=== PATIENT | male | born 1960 | race Caucasian/White ===

== ENCOUNTER 2018-01-19 21:54 | Inpatient (IN) | payer BC ==
[~2018-01-19] VITALS: Ht 172.7 cm; Wt 107.5 kg
[2018-01-19 22:01] VITALS: BP_SYST 114
--- NOTE | 2018-01-19 22:16 | NUR ---
Patient to ER bed 05 to gown for evaluation. Side rails up.
--- NOTE | 2018-01-19 22:20 | NUR ---
Pt states that recently he had spinal fusion surgury. Today around 1500, Pt broke out in a cold sweat and hit a fever per pt of 103. Pt has mid and upper back pain at 10/10. Nausea with no vomitting. Pt reports serosanguneous oozing from surgical site. Will continue to monitor. AAOx4.
[2018-01-19] MEDS ORDERED: NS 1000 ML BAG IV ONE (23:00)
[2018-01-19] MEDS ORDERED: ACETAMINOPHEN 325 MG TABLET PO ONE (23:00)
--- NOTE | 2018-01-19 23:05 | NUR ---
# 18 gauge angiocath placed to R AC. Use of asceptic technique. Opsite placed over site. Blood return noted. Blood for lab drawn from site. Flushed with 10 cc of normal saline. No evidence of infiltration noted. Patient tolerated well.
[2018-01-19 23:21] LABS: BASOPHILS # (AUTO) 0.3 K/uL (0.0-0.2); BASOPHILS % (AUTO) 1.8 % (0.0-2.0); EOSINOPHILS % (AUTO) 0.1 % (0.0-4.0); HEMATOCRIT 39.6 % (36-54); HEMOGLOBIN 13.3 g/dL (14.0-18.0); LYMPHOCYTES # (AUTO) 0.8 K/uL (1.0-5.5); LYMPHOCYTES % (AUTO) 4.5 % (20.5-51.5); MEAN CORPUSCULAR HEMOGLOBIN 29 pg (27-31); MEAN CORPUSCULAR HGB CONC 34 % (32-36); MEAN CORPUSCULAR VOLUME 88 fL (79.0-98.0); MONOCYTES # (AUTO) 0.9 K/uL (0.0-1.0); MONOCYTES % (AUTO) 5.1 % (1.7-9.3); NEUTROPHILS # (AUTO) 16.1 K/uL (1.8-7.7); PLATELET COUNT (AUTO) 458 K/uL (130-430); RED BLOOD CELL COUNT(AUTO) 4.51 MIL/uL (4.2-6.2); RED CELL DISTRIBUTION WIDTH 15.3 % (9.0-15.0); WHITE BLOOD COUNT (AUTO) 18.1 K/uL (4.8-10.8)
[2018-01-19 23:27] LABS: CALCIUM 9.6 mg/dL (8.4-11.0); CREATININE 1.27 mg/dL (0.55-1.30); POTASSIUM 3.5 mmol/L (3.5-5.1)
[2018-01-19 23:30] LABS: PROTHROMBIN TIME 10.4 SECS (9.5-12.5)
[2018-01-19 23:31] LABS: ALBUMIN 3.7 g/dL (3.4-4.8); TOTAL BILIRUBIN 0.4 mg/dL (0.0-1.0)
[2018-01-19 23:39] LABS: NEUTROPHILS % (AUTO) 88.5 % (40.0-70.0)
[2018-01-20] MEDS ORDERED: DIPHENHYDRAMINE INJ 50 MG/ML VIAL IVP ONE
[2018-01-20] MEDS ORDERED: MORPHINE 4 MG/ML INJ. SYRINGE IVP ONE
[2018-01-20] MEDS ORDERED: cefTRIAXone 1 GM in D5W 50 ML IV ONE (00:30)
[2018-01-20] MEDS ORDERED: NACL 0.9% 1,000 ML IV ONE (00:30)
[2018-01-20] MEDS ORDERED: cefTRIAXone 1 GM IVPB PREMIX 50 ML IV ONE (00:37)
--- NOTE | 2018-01-20 00:39 | NUR ---
Pt taken to CT.
[2018-01-20] MEDS ORDERED: MORPHINE 2 MG/ML INJ. SYRINGE IVP PRN (00:45)
[2018-01-20] MEDS ORDERED: LORazepam 2 MG/ML VIAL IVP PRN (00:45)
[2018-01-20] MEDS ORDERED: POTASSIUM CHLORIDE 20 MEQ TAB.PRT.SR PO PRN (00:45)
[2018-01-20] MEDS ORDERED: BISACODYL 10 MG/SUPPOSITORY RC PRN (00:45)
[2018-01-20] MEDS ORDERED: SIMETHICONE 80 MG TAB.CHEW PO PRN (00:45)
[2018-01-20] MEDS ORDERED: LIP80 PO (00:59)
[2018-01-20] MEDS ORDERED: FINA5TAB3 PO (00:59)
[2018-01-20] MEDS ORDERED: ZOLP10TA2 PO (00:59)
[2018-01-20] MEDS ORDERED: GABA-531 PO (00:59)
[2018-01-20] MEDS ORDERED: MULT PO (00:59)
[2018-01-20] MEDS ORDERED: AMLO5TAB4 PO (00:59)
[2018-01-20] MEDS ORDERED: CYCL-10 PO (00:59)
[2018-01-20] MEDS ORDERED: GLU500 PO (00:59)
[2018-01-20] MEDS ORDERED: SERT50TA PO (00:59)
[2018-01-20] MEDS ORDERED: ONDA4TAB5 PO (00:59)
[2018-01-20] MEDS ORDERED: TRAM50TA92 PO (00:59)
[2018-01-20] MEDS ORDERED: HYDR-4100 PO (00:59)
--- NOTE | 2018-01-20 01:35 | NUR ---
ADMISSION NOTE Received patient from ER via gurjuan, received report from RN. Patient admitted with diagnosis of SEPSIS. Patient oriented to hospital routine, call light, toileting and safety-patient verbalized understanding.
[2018-01-20 01:44] VITALS: BP_SYST 123
[2018-01-20] MEDS ORDERED: VANCOMYCIN HCL 1,000 MG in NS 250 ML IV ONE (01:45)
--- NOTE | 2018-01-20 01:45 | NUR ---
Patient will be admitted to care of Dr. Roman. Admitted to Med Surg unit. Will go to room 117B. Belongings list completed. Summary report printed. Report will be given at bedside.
--- NOTE | 2018-01-20 02:29 | NUR ---
PAGE CALLED FOR DR. PIERRE. LEFT VOICEMAIL , DIALED [phone].
[2018-01-20 02:35] VITALS: BP_SYST 123
[2018-01-20] MEDS ORDERED: VANCOMYCIN HCL 1000 MG/VIAL IV ONE (02:57)
[2018-01-20 03:13] LABS: FREE T4 (FREE THYROXINE) 0.8 ng/dL (0.6-1.6); PHOSPHORUS 1.5 mg/dL (2.7-4.5); THYROID STIMULATING HORMONE 0.45 uIu/mL (0.34-4.82)
[2018-01-20] MEDS: NACL 0.9% 1,000 ML IV SCH ×3 (03:15→23:10)
[2018-01-20] MEDS: ACETAMINOPHEN 325 MG TABLET PO PRN ×2 (03:41→11:17)
--- NOTE | 2018-01-20 06:30 | NUR ---
pt.recieved via the er-dept.pt.admitting diagnosis sepsis.pt.presents septic protocol interventions. i have initiated the iv fluids;ns.i have initiated the administration of vancomycin;abx;lvpb.i have assessed the v/s pt.has stablized;temp;98.6,hr;76,resp;16.b/p 136/73.pt.presents wounds;incision: breach of approximated incison x3 sites;drainage manifested.emiliano moore has ordered cx of wound;i have i have apprised the pt';s [id number] diabetic hx; has ordered diet;ccho,blood glucose; ac/hs;i have assessed the blood glucose;125mg/dl. apprised of the pt's c-pap needs:dayo moore has ordered c-pap;night.er-dept has ordered ua-u/cx:i have collected the urine sample.i have demonstrated the tita telephone function.pt.understanding returned demonstration.call light/telephone w/in the pt's reach.
[2018-01-20] MEDS ORDERED: ZOLPIDEM TARTRATE 5 MG TABLET PO SCH (07:15)
--- NOTE | 2018-01-20 07:25 | NUR ---
Opening Note: Patient laying in bed resting. Patient denies pain and discomfort. Breathing is even and unlabored with no distress noted. No signs of chills of shakiness. IV patent and intact. Bed in lowest position, wheels locked, side rails x3 and call light within reach. Will continue to monitor throughout shift.
--- NOTE | 2018-01-20 07:47 | NUR ---
CONSULTATION PAGED/CALLED Reason for Consultation: [] S/P CERVICAL FUSION; SEPSIS Person Who was Notified: [] CATHLEEN Consulting Physician: [] DR LOO Rn Mobile Specialty: [] ID Ordering Physician: [] DR Queta PIERRE
[2018-01-20 08:00] VITALS: BP_SYST 134
[2018-01-20] MEDS: SERTRALINE HCL 50 MG TABLET PO SCH (08:19)
[2018-01-20] MEDS: metFORMIN HCL 500 MG TABLET PO SCH ×2 (08:19→17:45)
[2018-01-20] MEDS: CYCLOBENZAPRINE HCL 10 MG TABLET (FLEXERIL) PO SCH ×3 (08:19→20:29)
[2018-01-20] MEDS: MULTIVITAMINS TAB 1 TABLET PO SCH (08:19)
[2018-01-20] MEDS: GABAPENTIN 300 MG CAPSULE PO SCH ×3 (08:19→20:30)
[2018-01-20] MEDS: FINASTERIDE 5 MG TABLET (PROSCAR) PO SCH (08:19)
[2018-01-20] MEDS: DOCUSATE SODIUM 100 MG CAPSULE PO SCH ×2 (08:20→20:29)
[2018-01-20] MEDS: amLODIPine BESYLATE 5 MG TABLET PO SCH (08:20)
[2018-01-20 08:26] LABS: BILIRUBIN,URINE NEGATIVE (NEGATIVE); BLOOD, URINE NEGATIVE (NEGATIVE); CLARITY/URINE CLEAR (CLEAR); COLOR,URINE YELLOW (YELLOW); GLUCOSE,URINE NEGATIVE (NEGATIVE); KETONES,URINE NEGATIVE (NEGATIVE); LEUKOCYTE ESTERASE ,URINE NEGATIVE (NEGATIVE); NITRITE, URINE NEGATIVE (NEGATIVE); PROTEIN URINE NEGATIVE (NEGATIVE); UROBILINOGEN,URINE 0.2 (0.2-1.0)
[2018-01-20] MEDS ORDERED: cefTRIAXone 1 GM in D5W 50 ML IV SCH (09:00)
[2018-01-20] MEDS ORDERED: traMADol HCL HCL 50 MG TABLET (ULTRAM) PO SCH (09:00)
--- NOTE | 2018-01-20 09:15 | NUR ---
Spoke to Dr. Roman: Spoke to Dr. Roman to clarify morphine order secondary to patient allergy to codeine. Per Dr. Roman "Patient said he took morphine post surgery two weeks ago". RN to clarify with patient and call pharmacy.
--- NOTE | 2018-01-20 10:00 | NUR ---
Rounding: Patient laying in bed resting. Patient given ice pack to place on back of neck t help relieve tenderness.
[2018-01-20] MEDS: MORPHINE 4 MG/ML INJ. SYRINGE IVP PRN ×3 (11:05→20:23)
[2018-01-20 11:41] VITALS: BP_SYST 129
[2018-01-20] MEDS: VANCOMYCIN HCL 1,250 MG in NS 250 ML IV SCH ×2 (11:45→23:35)
[2018-01-20] MEDS: HYDROcodone/ACETAMIN 10-325 MG TAB PO PRN ×2 (11:50→16:50)
[2018-01-20] MEDS: ONDANSETRON HCL 4 MG/2 ML VIAL IVP PRN ×2 (11:50→16:51)
--- NOTE | 2018-01-20 12:04 | NUR ---
Rounding: Patient sitting in bed on phone. Patient denies SOB or respiratory distress. Pain medication given, will continue to monitor for pain. Patient tolerated morning meds well. IV antibiotics up and running. Patient given Tylenol for a high temp. Will continue to monitor temp. throughout shift. Will continue to monitor patient.
--- NOTE | 2018-01-20 14:12 | NUR ---
Rounding: Patient laying in bed resting. Reporting no pain. More ice packs were placed on incision site. Patient feels comfortable.
--- NOTE | 2018-01-20 15:30 | NUR ---
IV RE-INSERTION: Complaining of discomfort to IV site. Restarted on left hand. Successful after 1 attempts. Resumed current IVF of NS 0.9% and regulated @ 90 ml per hour. Will observe for any signs of infiltration.
--- NOTE | 2018-01-20 16:00 | NUR ---
Rounding: Patient sitting in chair resting. at bedside. Patient denies pain and discomfort. Breathing is even and unlabored with no distress noted. Ice packs given and placed on posterior neck. Patient has no current needs. Will continue to monitor.
[2018-01-20 17:06] VITALS: BP_SYST 119
--- NOTE | 2018-01-20 18:10 | NUR ---
Closing Note: Patient sitting in bed resting. at bedside. Patient denies pain and discomfort. Breathing is even and unlabored with no distress noted. No signs of chills or shakiness. No fever noted. IV patent and intact with ordered IV fluids running. Bed in lowest position, wheels locked, side rails x3 and call light within reach. All needs met. Will endorse plan of care to NOC, nurse.
[2018-01-20 18:43] VITALS: BP_SYST 133
--- NOTE | 2018-01-20 19:25 | NUR ---
OPENING NOTE RECEIVED PT ENDORSEMENT FROM DAY SHIFT NURSE JED. PT RESTING COMFORTABLY IN BED WITH EYES OPEN. PT IS AOX4. PRESENT AT BEDSIDE. CHEST RISE EVEN AND UNLABORED. NO SOB NOTED. NO DISTRESS NOTED. IV DRY AND INTACT. IVF INFUSING WELL. NO FURTHER NEEDS AT THIS TIME. SAFETY MEASURES IN PLACE. BED WHEELS LOCKED, BED IN LOWEST POSITION, SIDE RAILS UP X2, CALL LIGHT WITHIN REACH. PHONE WITHIN REACH, BED SIDE TABLE WITHIN REACH, BED ALARM ON. WILL CONTINUE TO MONITOR PT.
--- NOTE | 2018-01-20 20:21 | NUR ---
RN ROUNDS PT RESTING COMFORTABLY IN BED WITH EYES OPEN. AT BEDSIDE. CHEST RISE EVEN AND UNLABORED. NO SOB NOTED. NO DISTRESS NOTED. PT REPORTS PAIN, MORPHINE ADMINISTERED ORDERED. SCHEDULED MEDICATIONS ADMINISTERED. IV DRY AND INTACT. IVF INFUSING WELL. DRESSING CHANGED AND ICE PLACED TO INCISION SITE. SAFETY MEASURES IN PLACE. BED WHEELS LOCKED, BED IN LOWEST POSITION, SIDE RAILS UP X2, CALL LIGHT WITHIN REACH. PHONE WITHIN REACH, BED SIDE TABLE WITHIN REACH, BED ALARM ON. WILL CONTINUE TO MONITOR PT.
[2018-01-20] MEDS: ATORVASTATIN 20 MG TABLET PO SCH (20:29)
--- NOTE | 2018-01-20 21:53 | NUR ---
RN ROUNDS PT RESTING COMFORTABLY IN BED WITH EYES OPEN. AT BEDSIDE. CHEST RISE EVEN AND UNLABORED. NO SOB NOTED. NO DISTRESS NOTED. IV DRY AND INTACT. IVF INFUSING WELL. ACCU CHECK, BLOOD SUGAR 97. NO INSULIN COVERAGE NEEDED AT THIS TIME. ALL SCHEDULED MEDICATIONS ADMINISTERED ORDERED. SAFETY MEASURES IN PLACE. BED WHEELS LOCKED, BED IN LOWEST POSITION, SIDE RAILS UP X2, CALL LIGHT WITHIN REACH. PHONE WITHIN REACH, BED SIDE TABLE WITHIN REACH, BED ALARM ON. WILL CONTINUE TO MONITOR PT.
[2018-01-20] MEDS: ZOLPIDEM TARTRATE 5 MG TABLET PO PRN (22:00)
--- NOTE | 2018-01-20 23:00 | NUR ---
RN ROUNDS PT RESTING COMFORTABLY IN BED WITH EYES OPEN. CHEST RISE EVEN AND UNLABORED. NO SOB NOTED. NO DISTRESS NOTED. IVF INFUSING WELL. PT USING CPAP AT THIS TIME. SAFETY MEASURES IN PLACE. BED WHEELS LOCKED, BED IN LOWEST POSITION, SIDE RAILS UP X2, CALL LIGHT WITHIN REACH. PHONE WITHIN REACH, BED SIDE TABLE WITHIN REACH, BED ALARM ON. WILL CONTINUE TO MONITOR PT.
[2018-01-21 00:23] VITALS: BP_SYST 139
--- NOTE | 2018-01-21 01:39 | NUR ---
RN ROUNDS PT RESTING COMFORTABLY IN BED WITH EYES CLOSED. CHEST RISE EVEN AND UNLABORED. NO SOB NOTED. NO DISTRESS NOTED. SAFETY MEASURES IN PLACE. BED WHEELS LOCKED, BED IN LOWEST POSITION, SIDE RAILS UP X2, CALL LIGHT WITHIN REACH. PHONE WITHIN REACH, BED SIDE TABLE WITHIN REACH, BED ALARM ON. WILL CONTINUE TO MONITOR PT.
--- NOTE | 2018-01-21 03:50 | NUR ---
RN ROUNDS CHEST RISE EVEN AND UNLABORED. NO SOB NOTED. NO DISTRESS NOTED. SAFETY MEASURES IN PLACE. BED WHEELS LOCKED, BED IN LOWEST POSITION, SIDE RAILS UP X2, CALL LIGHT WITHIN REACH. PHONE WITHIN REACH, BED SIDE TABLE WITHIN REACH, BED ALARM ON. WILL CONTINUE TO MONITOR PT.
--- NOTE | 2018-01-21 05:15 | NUR ---
RN ROUNDS PT RESTING IN BED WITH EYES CLOSED. CHEST RISE EVEN AND UNLABORED. NO SOB NOTED. NO DISTRESS NOTED. NO DISCOMFORT NOTED. SAFETY MEASURES IN PLACE. BED WHEELS LOCKED, BED IN LOWEST POSITION, SIDE RAILS UP X2, CALL LIGHT WITHIN REACH. PHONE WITHIN REACH, BED SIDE TABLE WITHIN REACH, BED ALARM ON. WILL CONTINUE TO MONITOR PT.
--- NOTE | 2018-01-21 06:26 | NUR ---
CLOSING NOTE WILL ENDORSE PT PLAN OF CARE TO DAY SHIFT NURSE. PT RESTING COMFORTABLY IN BED WITH EYE CLOSED. PT IS AOX4. CHEST RISE EVEN AND UNLABORED. NO SOB NOTED. NO DISTRESS NOTED. NO DISCOMFORT NOTED AT THIS TIME. IV DRY AND INTACT. IVF INFUSING WELL. NO FURTHER NEEDS AT THIS TIME. ALL SCHEDULED MEDICATIONS ADMINISTERED ORDERED. SAFETY MEASURES IN PLACE. BED WHEELS LOCKED, BED IN LOWEST POSITION, SIDE RAILS UP X2, CALL LIGHT WITHIN REACH. PHONE WITHIN REACH, BED SIDE TABLE WITHIN REACH, BED ALARM ON. WILL CONTINUE TO MONITOR PT AND FOLLOW OF PLAN OF CARE UNTIL ENDORSEMENT.
[2018-01-21 06:47] LABS: BASOPHILS % (AUTO) 0.3 % (0.0-2.0); EOSINOPHILS # (AUTO) 0.4 K/uL (0.0-0.4); EOSINOPHILS % (AUTO) 2.4 % (0.0-4.0); HEMOGLOBIN 10.9 g/dL (14.0-18.0); LYMPHOCYTES # (AUTO) 1.7 K/uL (1.0-5.5); LYMPHOCYTES % (AUTO) 10.8 % (20.5-51.5); MEAN CORPUSCULAR HEMOGLOBIN 30 pg (27-31); MEAN CORPUSCULAR HGB CONC 33 % (32-36); MEAN CORPUSCULAR VOLUME 91 fL (79.0-98.0); MONOCYTES # (AUTO) 0.9 K/uL (0.0-1.0); NEUTROPHILS # (AUTO) 12.8 K/uL (1.8-7.7); NEUTROPHILS % (AUTO) 80.5 % (40.0-70.0); PLATELET COUNT (AUTO) 293 K/uL (130-430); RED BLOOD CELL COUNT(AUTO) 3.64 MIL/uL (4.2-6.2); RED CELL DISTRIBUTION WIDTH 15.3 % (9.0-15.0); WHITE BLOOD COUNT (AUTO) 15.8 K/uL (4.8-10.8)
[2018-01-21 06:50] LABS: CALCIUM 8.4 mg/dL (8.4-11.0); CREATININE 0.85 mg/dL (0.55-1.30); PHOSPHORUS 2.5 mg/dL (2.7-4.5); POTASSIUM 3.6 mmol/L (3.5-5.1)
--- NOTE | 2018-01-21 07:15 | NUR ---
Opening Note: Patient laying in bed resting. Patient denies pain and discomfort. Breathing is even and unlabored with no distress noted. No signs of chills of shakiness. IV patent and intact with fluids running per MD order. Bed in lowest position, wheels locked, side rails x3 and call light within reach. Will continue to monitor throughout shift.
[2018-01-21 08:00] VITALS: BP_SYST 129
--- NOTE | 2018-01-21 08:24 | NUR ---
Consult Called Called consult for Dr. Gottlieb. Dr. Bruno is covering. Spoke with MD who asked for Dr. Abel bergeron. Number was provided to the MD.
[2018-01-21] MEDS: SERTRALINE HCL 50 MG TABLET PO SCH (08:44)
[2018-01-21] MEDS: CYCLOBENZAPRINE HCL 10 MG TABLET (FLEXERIL) PO SCH ×3 (08:44→21:20)
[2018-01-21] MEDS: GABAPENTIN 300 MG CAPSULE PO SCH ×3 (08:44→21:20)
[2018-01-21] MEDS: FINASTERIDE 5 MG TABLET (PROSCAR) PO SCH (08:44)
[2018-01-21] MEDS: DOCUSATE SODIUM 100 MG CAPSULE PO SCH ×2 (08:45→21:20)
[2018-01-21] MEDS: MULTIVITAMINS TAB 1 TABLET PO SCH (08:45)
[2018-01-21] MEDS: metFORMIN HCL 500 MG TABLET PO SCH ×3 (08:45→17:15)
[2018-01-21] MEDS: amLODIPine BESYLATE 5 MG TABLET PO SCH (08:45)
[2018-01-21] MEDS: MORPHINE 4 MG/ML INJ. SYRINGE IVP PRN ×2 (08:46→15:19)
[2018-01-21] MEDS: NACL 0.9% 1,000 ML IV SCH ×2 (08:49→21:20)
[2018-01-21 10:10] LABS: T4 (THYROXINE) 6.4 ug/dL (4.5-12.0)
--- NOTE | 2018-01-21 10:15 | NUR ---
Rounding: Patient sitting in bed resting. Will continue to monitor.
[2018-01-21] MEDS: HYDROcodone/ACETAMIN 10-325 MG TAB PO PRN ×2 (11:14→17:09)
[2018-01-21] MEDS: VANCOMYCIN HCL 1,250 MG in NS 250 ML IV SCH ×2 (11:14→23:39)
[2018-01-21] MEDS: ONDANSETRON HCL 4 MG/2 ML VIAL IVP PRN ×2 (11:14→17:08)
[2018-01-21 11:38] VITALS: BP_SYST 122
--- NOTE | 2018-01-21 12:11 | NUR ---
Rounding: Patient sitting in chair eating lunch. Patient reports decreased pain level. No signs of respiratory distress. Morning medications tolerated well. Will continue to monitor.
--- NOTE | 2018-01-21 12:12 | NUR ---
Rounding: Patient sitting in bed resting. Will continue to monitor.
--- NOTE | 2018-01-21 14:10 | NUR ---
Rounding: Patient laying in bed asleep.
[2018-01-21 16:26] VITALS: BP_SYST 129
--- NOTE | 2018-01-21 16:30 | NUR ---
Rounding: Patient sitting in chair reading a newspaper. at bedside. Patient denies SOB or respiratory distress. Patient complain fo moderate pain. Pain medication to be given. Meds tolerated well. Will continue to monitor.
--- NOTE | 2018-01-21 17:21 | NUR ---
Blood Sugar: Blood sugar 62. Held metformin. Patient shows no signs of hypoglycemia. Alert, awake and oriented. Gave patient orange juice, pudding and a sandwich. Will reassess in 30 minutes.
--- NOTE | 2018-01-21 17:51 | NUR ---
Blood Sugar reassessment: Blood sugar is 92. Patient denies any lightheadedness, dizziness or shakiness. No signs of hypoglycemia.
[2018-01-21] MEDS ORDERED: fentaNYL CITRATE/PF 100 MCG/2 ML AMP IVP PRN (19:00)
[2018-01-21 19:45] VITALS: BP_SYST 135
--- NOTE | 2018-01-21 19:45 | NUR ---
INITIAL NOTE PATIENT IS RESTING UPRIGHT IN A CHAIR BY BEDSIDE TABLE WITH AT BEDSIDE. PATIENT IS STABLE, NO SIGNS OF RESPIRATORY DISTRESS. PLAN OF CARE FOR THE EVENING IS COMMUNICATED WITH PATIENT AND FAMILY. IVS ARE SECURE, IVF RUNNING PER MD ORDERS. CALL LIGHT- TEACH BACK IS SUCCESSFUL. BED IS LOCKED, ALARMED, AND AT THE LOWEST LEVEL.
--- NOTE | 2018-01-21 20:50 | NUR ---
MD COMMUNICATION DR. PIERRE PAGED AT THIS TIME SINCE PATIENT'S PAIN MEDICATION WAS INEFFECTIVE FOR PATIENT, EVIDENCE BY PATIENT VERBALIZING PAIN OF 05/04. ORDERED FENTANYL 50 MCG IVP Q6 PRN FOR SEVERE PAIN, AND ONE DOSE TO BE GIVEN NOW. PATIENT ALSO REQUESTED FOR AMBIEN 10 MG INSTEAD OF 5 MG DOSE HE HAS ORDERED. DR PIERRE HAS APPROVED FOR AMBIEN 10 MG AT NIGHT PRN FOR INSOMNIA. ORDERS WERE READ BACK, VERIFIED, AND ENTERED. Addendum: 01/21/18 at 2311 by Sheldon Silveira RN NOTE INTENDED FOR 2149
[2018-01-21] MEDS ORDERED: cefTRIAXone 1 GM in D5W 50 ML IV SCH (21:00)
[2018-01-21] MEDS: ATORVASTATIN 20 MG TABLET PO SCH (21:27)
--- NOTE | 2018-01-21 21:47 | NUR ---
WOUND CARE AND D/C IV PATIENT IS RESTING UPRIGHT IN A CHAIR AT BEDSIDE, STABLE, NO SIGNS OF RESPIRATORY DISTRESS. PATIENT COMPLAINS OF 9/10 PAIN, HE IS GIVEN FLEXERIL PER PRN ORDERS FOR PAIN. WOUND CARE FOR POSTERIOR NECK WOUND IS PERFORMED AT THIS TIME. OLD 4/4 GAUZE WAS REMOVED WITH YELLOW DRAINAGE NOTED ON GAUZE, PERIWOUND IS DARK PINK, NEW 4/4 GUAZE IS PLACED ON WOUND AND SECURED WITH PAPER TAPE. PATIENT TOLERATED WELL. IV ON RIGHT AC IS D/C AT THIS TIME SINCE IV IS NOT PATENT. IV TIP INTACT, PATIENT TOLERATED WELL. PATIENT IS REQUESTING FOR AMBIEN TO BE GIVEN AT NIGHT AROUND 2200. REQUEST WILL BE GRANTED.
--- NOTE | 2018-01-21 21:50 | NUR ---
MD COMMUNICATION DR. PIERRE PAGED AT THIS TIME SINCE PATIENT'S PAIN MEDICATION WAS INEFFECTIVE FOR PATIENT, EVIDENCE BY PATIENT VERBALIZING PAIN OF 05/04. MD ORDERED FENTANYL 50 MCG IVP Q6 PRN FOR SEVERE PAIN, AND ONE DOSE TO BE GIVEN NOW. PATIENT ALSO REQUESTED FOR AMBIEN 10 MG INSTEAD OF 5 MG DOSE HE HAS ORDERED. DR PIERRE HAS APPROVED FOR AMBIEN 10 MG AT NIGHT PRN FOR INSOMNIA. ORDERS WERE READ BACK, VERIFIED, AND ENTERED.
[2018-01-21] MEDS: ZOLPIDEM TARTRATE 5 MG TABLET PO PRN (22:24)
[2018-01-21] MEDS ORDERED: ZOLPIDEM TARTRATE 5 MG TABLET PO ONE (23:30)
[2018-01-21] MEDS: fentaNYL CITRATE/PF 100 MCG/2 ML AMP IVP PRN (23:42)
--- NOTE | 2018-01-21 23:45 | NUR ---
NOTE PATIENT IS SLEEPING IN BED, STABLE, NO SIGNS OF RESPIRATORY DISTRESS. PATIENT IS WEARING A CPAP FROM [facility], CPAP IS SECURE AND WORKING PROPERLY. PATIENT IS GIVEN 50 MCG FENTANYL AND 5 ADDITIONAL MG OF AMBIEN ORDERED BY MD. PATIENT TOLERATED WELL. CALL LIGHT WITHIN REACH. BED IS LOCKED, ALARMED, AND AT THE LOWEST LEVEL.
[2018-01-21 23:57] VITALS: BP_SYST 146
--- NOTE | 2018-01-22 00:12 | NUR ---
NOTE PATIENT IS SLEEPING, STABLE, NO SIGNS OF RESPIRATORY DISTRESS. PAIN MEDICATION AND SLEEPING MEDICATION EFFECTIVE EVIDENCE BY PATIENT BEING ABLE TO SLEEP. CALL LIGHT WITHIN REACH. BED IS LOCKED, ALARMED, AND AT THE LOWEST LEVEL.
--- NOTE | 2018-01-22 01:50 | NUR ---
NOTE PATIENT IS SLEEPING, STABLE, NO SIGNS OF RESPIRATORY DISTRESS. CALL LIGHT WITHIN REACH. BED IS LOCKED, ALARMED, AND AT THE LOWEST LEVEL.
--- NOTE | 2018-01-22 05:10 | NUR ---
NOTE PATIENT IS SLEEPING, STABLE, NO SIGNS OF RESPIRATORY DISTRESS. CALL LIGHT WITHIN REACH. BED IS LOCKED, ALARMED, AND AT THE LOWEST LEVEL.
[2018-01-22] MEDS: fentaNYL CITRATE/PF 100 MCG/2 ML AMP IVP PRN ×4 (06:16→22:01)
--- NOTE | 2018-01-22 06:45 | NUR ---
CLOSING NOTE PATIENT IS RESTING IN BED AT THIS TIME, STABLE, NO SIGNS OF RESPIRATORY DISTRESS. PATIENT VERBALIZES PAIN OF 7/10, PRN PAIN MEDICATION IS GIVEN AT THIS TIME PER MD ORDERS. BLOOD SUGAR CHECK AT THIS TIME IS 90, NO INSULIN COVERAGE IS NECESSARY AT THIS TIME. IV IS SECURE, INTACT, AND RUNNING IVF ORDERED. CALL LIGHT WITHIN REACH. BED IS LOCKED, ALARMED, AND AT THE LOWEST LEVEL. WILL CONTINUE TO MONITOR UNTIL SHIFT REPORT IS GIVEN TO AM NURSE AT BEDSIDE.
[2018-01-22 06:51] LABS: BASOPHILS # (AUTO) 0.1 K/uL (0.0-0.2); BASOPHILS % (AUTO) 0.6 % (0.0-2.0); EOSINOPHILS # (AUTO) 0.5 K/uL (0.0-0.4); EOSINOPHILS % (AUTO) 5.1 % (0.0-4.0); HEMATOCRIT 31.6 % (36-54); HEMOGLOBIN 10.1 g/dL (14.0-18.0); LYMPHOCYTES # (AUTO) 1.7 K/uL (1.0-5.5); LYMPHOCYTES % (AUTO) 16.1 % (20.5-51.5); MEAN CORPUSCULAR HEMOGLOBIN 29 pg (27-31); MEAN CORPUSCULAR HGB CONC 32 % (32-36); MEAN CORPUSCULAR VOLUME 90 fL (79.0-98.0); MONOCYTES # (AUTO) 0.6 K/uL (0.0-1.0); MONOCYTES % (AUTO) 5.5 % (1.7-9.3); NEUTROPHILS # (AUTO) 7.7 K/uL (1.8-7.7); NEUTROPHILS % (AUTO) 72.7 % (40.0-70.0); PLATELET COUNT (AUTO) 308 K/uL (130-430); RED BLOOD CELL COUNT(AUTO) 3.52 MIL/uL (4.2-6.2); RED CELL DISTRIBUTION WIDTH 15.1 % (9.0-15.0); WHITE BLOOD COUNT (AUTO) 10.6 K/uL (4.8-10.8)
[2018-01-22 07:00] LABS: CALCIUM 8.3 mg/dL (8.4-11.0); CREATININE 0.67 mg/dL (0.55-1.30); PHOSPHORUS 3.1 mg/dL (2.7-4.5); POTASSIUM 3.6 mmol/L (3.5-5.1)
[2018-01-22] MEDS: NACL 0.9% 1,000 ML IV SCH ×2 (08:06→15:55)
[2018-01-22 08:30] VITALS: BP_SYST 131
--- NOTE | 2018-01-22 08:30 | NUR ---
OPENING NOTE LATE ENTRY DUE TO PT CARE: REPORT IS RECEIVED FROM NUTRITION COUNSELOR NURSE AND CARE IS ENDORSED OVER TO MYSELF. PT IS RECEIVED AWAKE, ALERT, AND ORIENTED X4. MORNING VS ARE STABLE. PT COMPLAINED OF PAIN IN NECK AREA OF 8 OUT OF 10. GAVE PRN MORPHINE AND MORNING MEDICATIONS. PT ADVISED OF INCREASED RISK FOR FALLS AND THE NEED TO USE CALL LIGHT SHOULD HE WANT TO GET OUT OF BED SINCE PT REFUSED BED ALARM. PT VERBALIZED UNDERSTANDING. PT HAS IV ACCESS TO LEFT HAND 20G WITH NS INFUSING AT 90ML/HR. IV IS PATENT, FREE OF ERYTHEMA OR INFLAMMATION. WHITE BOARD IS UPDATED WITH CURRENT INFORMATION, CURRENT NEEDS ARE MET. BED IS AT LOWEST POSITION, CALL LIGHT WITHIN REACH, THREE SIDE RAILS UP, BED ALARM IS ON. WILL CONTINUE TO MONITOR.
[2018-01-22] MEDS: metFORMIN HCL 500 MG TABLET PO SCH ×2 (08:32→17:46)
[2018-01-22] MEDS: GABAPENTIN 300 MG CAPSULE PO SCH ×3 (09:28→21:00)
[2018-01-22] MEDS: CYCLOBENZAPRINE HCL 10 MG TABLET (FLEXERIL) PO SCH ×3 (09:28→21:00)
[2018-01-22] MEDS: DOCUSATE SODIUM 100 MG CAPSULE PO SCH ×2 (09:28→21:00)
[2018-01-22] MEDS: amLODIPine BESYLATE 5 MG TABLET PO SCH (09:28)
[2018-01-22] MEDS: MULTIVITAMINS TAB 1 TABLET PO SCH (09:28)
[2018-01-22] MEDS: FINASTERIDE 5 MG TABLET (PROSCAR) PO SCH (09:29)
[2018-01-22] MEDS: SERTRALINE HCL 50 MG TABLET PO SCH (09:29)
[2018-01-22] MEDS: MORPHINE 4 MG/ML INJ. SYRINGE IVP PRN ×2 (09:30→15:55)
--- NOTE | 2018-01-22 09:45 | NUR ---
DR. IGNACIO MCMANUS
--- NOTE | 2018-01-22 10:11 | NUR ---
ROUNDS PT IS SITTING ALONG BEDSIDE. NO SIGNS OR SYMPTOMS OF DISTRESS OR SOB NOTED. PT STATES CURRENT PAIN LEVEL IS AT A 5 WHICH IS TOLERABLE PER PT. CURRENT NEEDS ARE MET.BED IS AT LOWEST POSITION,CALL LIGHT WITHIN REACH, TWO SIDE RAILS UP. WILL CONTINUE TO MONITOR.
[2018-01-22] MEDS ORDERED: VANCOMYCIN HCL 1,500 MG in NS 250 ML IV SCH (11:00)
[2018-01-22 12:22] VITALS: BP_SYST 134
--- NOTE | 2018-01-22 12:45 | NUR ---
ROUNDS LATE ENTRY DUE TO PT CARE: PT IS EATING LUNCH AT BEDSIDE. NO SIGNS OR SYMPTOMS OF DISTRESS OR SOB NOTED. FINGERSTICK BLOOD SUGAR WAS LOW (61) AND PT WAS GIVEN TWO APPLE JUICES. BLOOD SUGAR WAS REASSESSED 30 MINUTES LATER AND IT WAS 81. CURRENT NEEDS ARE MET.BED IS AT LOWEST POSITION, CALL LIGHT WITHIN REACH, TWO SIDE RAILS UP. WILL CONTINUE TO MONITOR.
[2018-01-22] MEDS: ceFAZolin SODIUM 1 GM in D5W 50 ML IV SCH ×2 (14:21→21:00)
[2018-01-22] MEDS: ONDANSETRON HCL 4 MG/2 ML VIAL IVP PRN ×2 (14:22→22:39)
[2018-01-22] MEDS: HYDROcodone/ACETAMIN 10-325 MG TAB PO PRN ×2 (14:22→22:39)
--- NOTE | 2018-01-22 14:31 | NUR ---
Dietitian Recommendations *Recommend CCHO 2gm Na diet w/ Boost Plus BID for 5 days or until PO intake improves. Oral supplement will provide additional 500 kcal and 28 gm protein daily. Please see Nutritional Assessment for details. MICHAEL BOSTON
--- NOTE | 2018-01-22 14:40 | NUR ---
ROUNDS LATE ENTRY DUE TO PT CARE: PT IS SLEEPING BUT IS EASILY AWAKEN. NO SIGNS OR SYMPTOMS OF DISTRESS OR SOB NOTED. CURRENT NEEDS ARE MET. BED IS AT LOWEST POSITION, CALL LIGHT WITHIN REACH, TWO SIDE RAILS UP. WILL CONTINUE TO MONITOR.
--- NOTE | 2018-01-22 15:30 | NUR ---
PT TAKEN TO CT
[2018-01-22 16:00] VITALS: BP_SYST 135
--- NOTE | 2018-01-22 16:43 | NUR ---
ROUNDS PT WAS BROUGHT BACK FROM CT. NO SIGNS OR SYMPTOMS OF DISTRESS OR SOB NOTED. PT COMPLAINED OF PAIN OF 8 OUT OF 10 IN NECK AREA AND WAS GIVEN PRN MORPHINE IVP. PT ADVISED OF INCREASED RISK FOR FALLS AND THE NEED TO USE CALL LIGHT SHOULD HE WANT TO GET OUT OF BED SINCE HE DOESN'T WANT BED ALARM ON. PT VERBALIZED UNDERSTANDING. DRESSING TO BACK OF NECK WAS CHANGED AND TOLERATED WELL. CURRENT NEEDS ARE MET. BED IS AT LOWEST POSITION, CALL LIGHT WITHIN REACH, TWO SIDE RAILS UP. WILL CONTINUE TO MONITOR.
[2018-01-22] MEDS: ACETAMINOPHEN 325 MG TABLET PO PRN (17:47)
--- NOTE | 2018-01-22 18:55 | NUR ---
CLOSING NOTE PT IS SITTING ALONG BEDSIDE. NO SIGNS OR SYMPTOMS OF DISTRESS OR SOB NOTED. DAUGHTER IS AT BEDSIDE. CURRENT NEEDS ARE MET. BED IS AT LOWEST POSITION, CALL LIGHT WITHIN REACH, TWO SIDE RAILS UP. WILL CONTINUE TO MONITOR UNTIL CARE AND REPORT IS GIVEN TO BEHAVIORAL SCIENTIST NURSE.
--- NOTE | 2018-01-22 19:02 | NUR ---
DR. SHENG MCMANUS
--- NOTE | 2018-01-22 19:36 | NUR ---
INITIAL NOTES RECEIVED HANDOFF REPORT FROM OFFGOING NURSE AT THE BEDSIDE. PATIENT IS AWAKE AND ALERT, SITTING UP IN BEDSIDE CHAIR WITH TABLE INFRONT OF HIM EATING. FAMILY AT THE BEDSIDE. DR PATRICIO AT THE BEDSIDE DISCUSSING PLAN OF CARE, AND STATED THAT SHE WILL KEEP THE PATIENT NPO AFTER MIDNIGHT. NO SOB, NO ACUTE DISTRESS, NO COMPLAINTS OF PAIN AT THIS TIME. CALL LIGHT WITHIN REACH. WILL CONTINUE WITH PLAN OF CARE.
[2018-01-22 20:45] VITALS: BP_SYST 124
[2018-01-22] MEDS: ATORVASTATIN 20 MG TABLET PO SCH (21:00)
[2018-01-22] MEDS: ZOLPIDEM TARTRATE 5 MG TABLET PO PRN (22:01)
--- NOTE | 2018-01-22 22:08 | NUR ---
PATIENT REQUESTED FOR FENTANYL AND AMBIEN. PATIENT WANTS AMBIEN WITH FENTANYL SO THAT HE CAN GET SOME REST FOR TONIGHT. ALSO STATED HE HAS SHARP PAIN IN BETWEEN HIS SHOULDER BLADES AND ON THE BACK OF HIS NECK 04/03. FENTANYL PROVIDED PER MD ORDER, SEE EMAR FOR DETAILS. ALSO PROVIDED AMBIEN PER MD ORDER. Addendum: 01/22/18 at 2210 by Melissa Urbina RN CONTINUATION OF NOTES PATIENT IS AWAKE AND ALERT, RESTING COMFORTABLY IN BED. NO SOB, NO ACUTE DISTRESS. BED IS LOCKED, IN THE LOWEST POSITION, 2X SIDERAILS UP. PATIENT REFUSES BED ALARM. STATED THAT HE HAD JUST WALKED BACK TO BED, BUT HE WOULD LIKE TO BE ABLE TO GET UP WHENEVER HE CAN. CALL LIGHT IS WITHIN REACH, ENCOURAGED PATIENT TO CALL.
--- NOTE | 2018-01-22 22:43 | NUR ---
PATIENT REQUESTED FOR NORCO FOR 6/10 PAIN THAT IS SHARP IN BETWEEN HIS SHOULDER BLADES AND THE BACK OF THE NECK. PATIENT STATED HE WANTS HIS PAIN TO BE AT A CONTROLLABLE LEVEL. ALSO, THE PATIENT REQUESTED FOR ZOFRAN, STATING THAT THE NORCO MAKES HIM NAUSEOUS. NORCO AND ZOFRAN PROVIDED PRN PER MD ORDER, SEE EMAR FOR DETAILS.
[2018-01-22 23:00] VITALS: BP_SYST 123
[2018-01-23] VITALS (7 sets, daily range): BP systolic 120–155
--- NOTE | 2018-01-23 00:28 | NUR ---
ENDORSEMENT OF CARE GIVEN TO CHAU-RN AT THE BEDSIDE. PATIENT IS SLEEPING, RESTING COMFORTABLY IN BED. NO SOB, NO ACUTE DISTRESS, NO SIGNS OF PAIN OR FACIAL GRIMACING. BREATHING EVEN AND UNLABORED WITH VISIBLE CHEST RISE. IV SITE INTACT, CURRENTLY INFUSING FLUIDS AT THE ORDERED RATE, SEE EMAR. BED IS LOCKED, IN THE LOWEST POSITION, 2X SIDE RAILS UP. CALL LIGHT WITHIN REACH. ALL NEEDS HAVE BEEN MET DURING MY CARE.
--- NOTE | 2018-01-23 00:29 | NUR ---
RESUME THE CARE Received the reported from NGOC Torres at bedside. Patient resting on the bed with eyes closed. No acute distress. Respiration even and unlabored. On CPAP at this time. Skin warm and dry to touch. IV intact to left hand, no redness, no swelling, no drainage. On NS at 90ml/hr, infusing well. Safety measure maintained. Bed locked in low position, side rails up. Call light within reached. Will continue to monitor.
[2018-01-23] MEDS: MORPHINE 4 MG/ML INJ. SYRINGE IVP PRN ×4 (00:51→23:47)
--- NOTE | 2018-01-23 00:52 | NUR ---
MORPHINE GIVEN Patient c/o neck pain 04/03 after ambulated to bathroom. Morphine 4mg IVP given as ordered. No acute distress. Safety measure maintained. Call light within reached. Bed locked in low position, side rails up. Continue to monitor.
--- NOTE | 2018-01-23 01:53 | NUR ---
ROUND Patient resting on the bed with eyes closed. No acute distress. Respiration even and unlabored. Continue on CPAP. IV intact, IVF infusing well. Safety measure maintained. Call light within reached. Bed locked in low position, side rails up. Continue to monitor.
[2018-01-23] MEDS: fentaNYL CITRATE/PF 100 MCG/2 ML AMP IVP PRN ×4 (03:11→21:14)
--- NOTE | 2018-01-23 03:12 | NUR ---
FENTANYL GIVEN Patient c/o neck pain 05/04, Fentanyl 75mcg IVP given as ordered. No acute distress. Continue on CPAP. Safety measure maintained. Bed locked in low position, side rails up. Call light within reached. Continue to monitor.
[2018-01-23] MEDS: NACL 0.9% 1,000 ML IV SCH ×3 (03:20→23:48)
[2018-01-23] MEDS: ceFAZolin SODIUM 1 GM in D5W 50 ML IV SCH ×3 (05:15→21:15)
--- NOTE | 2018-01-23 05:20 | NUR ---
MORPHINE GIVEN Patient c/o neck pain 04/03. Morphine 4mg IVP given as ordered. No acute distress. Off CPAP at this time. Safety measure maintained. Call light within reached. Bed locked in low position, side rails up. Continue to monitor.
--- NOTE | 2018-01-23 06:23 | NUR ---
CLOSING NOTE Patient resting on the bed. No acute distress. Respiration even and unlabored. Stated that still has pain. Pain med given around clock during shift. IV intact, IVF infusing well. All needs met. Hourly rounding during shift. Safety measure maintained. Bed locked in low position, side rails up. Call light within reached. Will endorse to morning shift.
[2018-01-23 06:38] LABS: BASOPHILS # (AUTO) 0.1 K/uL (0.0-0.2); BASOPHILS % (AUTO) 0.6 % (0.0-2.0); EOSINOPHILS # (AUTO) 0.6 K/uL (0.0-0.4); EOSINOPHILS % (AUTO) 6.2 % (0.0-4.0); HEMATOCRIT 29.7 % (36-54); HEMOGLOBIN 9.7 g/dL (14.0-18.0); LYMPHOCYTES # (AUTO) 1.8 K/uL (1.0-5.5); MEAN CORPUSCULAR HEMOGLOBIN 29 pg (27-31); MEAN CORPUSCULAR HGB CONC 33 % (32-36); MEAN CORPUSCULAR VOLUME 90 fL (79.0-98.0); MONOCYTES # (AUTO) 0.6 K/uL (0.0-1.0); MONOCYTES % (AUTO) 5.9 % (1.7-9.3); NEUTROPHILS # (AUTO) 6.3 K/uL (1.8-7.7); NEUTROPHILS % (AUTO) 68.3 % (40.0-70.0); PLATELET COUNT (AUTO) 288 K/uL (130-430); RED BLOOD CELL COUNT(AUTO) 3.32 MIL/uL (4.2-6.2); RED CELL DISTRIBUTION WIDTH 15.1 % (9.0-15.0); WHITE BLOOD COUNT (AUTO) 9.4 K/uL (4.8-10.8)
[2018-01-23 06:50] LABS: CALCIUM 8.6 mg/dL (8.4-11.0); CREATININE 0.75 mg/dL (0.55-1.30); PHOSPHORUS 4.1 mg/dL (2.7-4.5); POTASSIUM 3.6 mmol/L (3.5-5.1)
--- NOTE | 2018-01-23 07:20 | NUR ---
FENTANYL GIVEN Patient c/o neck pain 04/03, Fentanyl 75mcg IVP given as ordered. No acute distress. Continue on CPAP. Safety measure maintained. Bed locked in low position, side rails up. Call light within reached. Will endorse to morning shift nurse.
--- NOTE | 2018-01-23 07:52 | NUR ---
Nutrition Update Alen Scale 18 noted. Pt admitted for sepsis Diet: NPO BMI: 36 kg/m2 RD to follow per nutrition care standards.
[2018-01-23] MEDS: metFORMIN HCL 500 MG TABLET PO SCH ×2 (08:00→17:55)
--- NOTE | 2018-01-23 08:00 | NUR ---
Note Pt sitting up in bed and dressing on cervical spine was changed and cleaned at 0715am. No SOB/resp distress or pain/discomfort noted at this time. IVF's infusing well through left hand IV site. Pt is kept NPO for possible surgery. No needs noted. Call light wihtin reach.
[2018-01-23] MEDS: MULTIVITAMINS TAB 1 TABLET PO SCH (08:52)
[2018-01-23] MEDS: DOCUSATE SODIUM 100 MG CAPSULE PO SCH ×2 (08:52→21:15)
[2018-01-23] MEDS: amLODIPine BESYLATE 5 MG TABLET PO SCH (08:52)
[2018-01-23] MEDS: CYCLOBENZAPRINE HCL 10 MG TABLET (FLEXERIL) PO SCH ×3 (08:52→21:15)
[2018-01-23] MEDS: GABAPENTIN 300 MG CAPSULE PO SCH ×3 (08:52→21:15)
[2018-01-23] MEDS: FINASTERIDE 5 MG TABLET (PROSCAR) PO SCH (08:53)
[2018-01-23] MEDS: SERTRALINE HCL 50 MG TABLET PO SCH (08:53)
--- NOTE | 2018-01-23 10:52 | NUR ---
PAGED DR PATRICIO S/W FARIDA
--- NOTE | 2018-01-23 11:30 | NUR ---
Note Dr Bruno was called at 1045am per pt's request to see when Dr Bruno was coming in to see pt and if surgery was going to be done today. Dr Bruno called back at 1100am and said she will probably come to see pt later this afternoon, also she would like to speak to Dr Lincoln. Dr Lincoln was called and Dr Bruno's cell phone and office number given for Dr Lincoln to call. 1105am - Dr Bruno called back and stated that OR only has an opening tomorrow at 2pm. Pt may have his [facility] diet today and MD will came see pt this afternoon. Pt was informed and questions/concerns were answered at this time. Pt sitting in BS chair and working on his laptop. No needs noted. Call light within reach.
--- NOTE | 2018-01-23 12:30 | NUR ---
Note Pt's blood sugar was 60, pt was given 2 cups of apple juice at this time. Lunch tray also at bedside at this time.
--- NOTE | 2018-01-23 13:45 | NUR ---
Note Pt having Ultrasound Venous Doppler study of lower extremities at bedside at this time.
--- NOTE | 2018-01-23 16:00 | NUR ---
Note Pt has been ambulating in room to the restroom with IV pole with steady gait. Cervical dressing CDI - was changed around 1415. Previous dressing was saturated (changed at start of shift by NOC RN). Pt denies any needs at this time. Call light within reach.
--- NOTE | 2018-01-23 17:45 | NUR ---
Note Dr Bruno at bedside explaining surgery and questions/concerns were answered at this time. Pt sitting on side of bed eating his dinner. Pt's in bedside chair visiting at this time. No needs noted. Call light within reach.
[2018-01-23 17:48] LABS: PROTHROMBIN TIME 9.8 SECS (9.5-12.5)
--- NOTE | 2018-01-23 19:00 | NUR ---
Note Pt resting in bed and in BSC. No needs noted. No SOB/resp distress or pain/discomfort noted. Cervical dressing CDI at this time. IV in left hand and right forearm intact and patent at this time. Call light within reach.
--- NOTE | 2018-01-23 20:20 | NUR ---
OPENING SHIFT NOTE patient alert oriented x4. patient has new PICC placed on left upper arm, infusing NS at 90ml/hr. patient has incision on neck, covered with abdominal pad. dressing clean, dry and intact. plan of care discussed and advised patient to call PRN. patient verbalized understanding. will continue to monitor.
[2018-01-23] MEDS: ATORVASTATIN 20 MG TABLET PO SCH (21:15)
--- NOTE | 2018-01-23 21:45 | NUR ---
DRESSING CHANGE cleansed wound with ns, pad dry with sterile gauze, covered with sterile gauze and abdominal pad. secured with paper tape. will continue to monitor.
[2018-01-23] MEDS: ZOLPIDEM TARTRATE 5 MG TABLET PO PRN (22:31)
--- NOTE | 2018-01-23 23:50 | NUR ---
PAIN MEDICATION patient requesting pain medication. administered morphine per order. advised patient to call when ambulating due to increased risk for fall patient verbalized understanding. will continue to monitor.
[2018-01-24 00:13] VITALS: BP_SYST 147
[2018-01-24] MEDS: fentaNYL CITRATE/PF 100 MCG/2 ML AMP IVP PRN ×5 (02:12→16:05)
--- NOTE | 2018-01-24 02:30 | NUR ---
SCD REFUSAL patient refusing scd to be applied. educated patient on indication for scd. patient states that he does not think that he is at risk for clots for now, but he will have them on after surgery. will continue to monitor.
--- NOTE | 2018-01-24 04:43 | NUR ---
ROUNDS patient sleeping comfortably, no distress noted. will continue to monitor. bed in lowest position, call light within reach.
[2018-01-24] MEDS: ceFAZolin SODIUM 1 GM in D5W 50 ML IV SCH ×3 (05:09→21:25)
[2018-01-24] MEDS: MORPHINE 4 MG/ML INJ. SYRINGE IVP PRN ×4 (05:09→21:22)
--- NOTE | 2018-01-24 06:32 | NUR ---
CONSENT consent obtained for surgery. asked patient if he has any concern or questions. patient denies. advised patient to ask questions if he has one later. patient verbalized understanding. will continue to monitor.
[2018-01-24] MEDS: INSULIN REGULAR, HUMAN 100 UNITS/ML, 10 ML VIAL (novoLIN R) SUBCUT PRN (06:33)
--- NOTE | 2018-01-24 07:30 | NUR ---
END OF SHIFT care endorsed to Shannan GROSSMAN. patient sitting on chair, next to bed, no distress noted.
--- NOTE | 2018-01-24 07:55 | NUR ---
INITIAL NOTES RECEIVED PATIENT FROM BOARD CERTIFIED FAMILY PHYSICIAN. PATIENT AWAKE. A/Ox4. VERBALLY RESPONSIVE. ROOM AIR. NO ACUTE DISTRESS. NO SOB. RESPIRATION EVEN AND UNLABORED. SKIN WARM AND DRY TO TOUCH. PICC LINE TO LEFT UPPER ARM INTACT AND PATENT. INCISION NOTED TO POSTERIOR NECK; COVERED WITH ABDOMINAL PAD AND SECURED. ORIENTED PATIENT TO CALL LIGHT AND TO USE FOR ASSIST, PT VERBALIZED UNDERSTANDING. DISCUSSED PLAN OF CARE WITH PATIENT, PT VERBALIZED UNDERSTANDING. PT REFUSED BED ALARM AND BILAT SCDs. ALL NEEDS MET. CONT TO MONITOR. CALL LIGHT IN REACH.
[2018-01-24 08:00] VITALS: BP_SYST 132
[2018-01-24] MEDS: GABAPENTIN 300 MG CAPSULE PO SCH ×3 (09:17→21:29)
[2018-01-24] MEDS: metFORMIN HCL 500 MG TABLET PO SCH ×2 (09:17→17:10)
[2018-01-24] MEDS: FINASTERIDE 5 MG TABLET (PROSCAR) PO SCH (09:17)
[2018-01-24] MEDS: MULTIVITAMINS TAB 1 TABLET PO SCH (09:17)
[2018-01-24] MEDS: DOCUSATE SODIUM 100 MG CAPSULE PO SCH ×2 (09:17→21:27)
[2018-01-24] MEDS: CYCLOBENZAPRINE HCL 10 MG TABLET (FLEXERIL) PO SCH ×3 (09:18→21:28)
[2018-01-24] MEDS: SERTRALINE HCL 50 MG TABLET PO SCH (09:18)
[2018-01-24] MEDS: amLODIPine BESYLATE 5 MG TABLET PO SCH (09:18)
--- NOTE | 2018-01-24 09:20 | NUR ---
NOTES PATIENT STABLE. AMBULATED TO BATHROOM WITH STEADY GAIT. NO ACUTE DISTRESS. NO SOB. RESP EVEN AND UNLABORED. CONTINUE TO MONITOR. CALL LIGHT IN REACH.
--- NOTE | 2018-01-24 11:15 | NUR ---
PAGED FOR LOW BLOOD SUGAR AT 58. PATIENT STABLE. NO S/SX HYPOGLYCEMIA NOTED. AWAITING FOR CALL BACK.
--- NOTE | 2018-01-24 11:55 | NUR ---
PAGED x2 FOR PATIENTS BLOOD SUGAR OF 58. PATIENT STABLE. NO S/SX HYPOGLYCEMIA NOTED. CONT TO MONITOR.
--- NOTE | 2018-01-24 12:20 | NUR ---
SPOKE TO DR. HARO AND INFORMED HIM PATIENT BLOOD SUGAR IS AT 58. RECEIVED ORDER FOR DEXTROSE ORDERED.
[2018-01-24] MEDS ORDERED: DEXTROSE 50% JECT 50 ML DISP.SYRIN IVP PRN (12:30)
[2018-01-24 12:46] VITALS: BP_SYST 146
--- NOTE | 2018-01-24 13:40 | NUR ---
BLOOD SUGAR PATIENT STABLE. NO S/SX HYPOGLYCEMIA NOTED. LAST BLOOD SUGAR AT 138. MADE OR AWARE.
--- NOTE | 2018-01-24 13:55 | NUR ---
off unit PATIENT TAKEN OFF UNIT VIA BED TO OR FOR PROCEDURE. PATIENT A/Ox4. STABLE. NO ACUTE DISTRESS. NO SOB NOTED. SKIN WARM AND DRY TO TOUCH.
[2018-01-24] MEDS ORDERED: POLYMYXIN 500,000/BACIT.10,000 UNITS in NS IRR 1 L IR ONE (14:20)
[2018-01-24] MEDS ORDERED: ONDANSETRON HCL 4 MG/2 ML VIAL IVP PRN (15:00)
[2018-01-24] MEDS ORDERED: fentaNYL CITRATE/PF 100 MCG/2 ML AMP IVP PRN (15:00)
[2018-01-24] MEDS: NACL 0.9% 1,000 ML IV SCH (15:41)
[2018-01-24] MEDS ORDERED: NS 1000 ML BAG IV ONE (15:45)
[2018-01-24] MEDS ORDERED: fentaNYL CITRATE/PF 100 MCG/2 ML AMP IVP ONE (15:45)
[2018-01-24] MEDS ORDERED: MIDAZOLAM HCL 5 MG/ML VIAL (VERSED) IV ONE (15:45)
[2018-01-24] MEDS ORDERED: PROPOFOL 200MG/ 20ML VIAL (DIPRIVAN) IV ONE (15:45)
[2018-01-24] MEDS ORDERED: ONDANSETRON 4 MG ODT TAB PO PRN (16:00)
[2018-01-24 16:30] VITALS: BP_SYST 141
--- NOTE | 2018-01-24 16:30 | NUR ---
on unit PATIENT STABLE. BP 141/81, HR 67, RR 16, SPO2@97%, PAIN 1/10. AWAKE. NO ACUTE DISTRESS. NO SOB. RESPIRATION EVEN AND UNLABORED. SKIN WARM AND DRY TO TOUCH. PATIENT KRISTY CERVICAL IRRIGATION AND DEBRIDEMENT. CERVICAL BRACE IN PLACE. HEMOVAC NOTED TO SURGICAL SITE DRAINING SMALL AMOUNT OF BLOOD. INCENTIVE SPIROMETER PROVIDED AND INSTRUCTED PATIENT TO USE 10x/HR EVERY HR, PT VERBALIZED UNDERSTANDING. ALL NEEDS MET.
--- NOTE | 2018-01-24 18:00 | NUR ---
NOTES PATIENT STABLE. SITTING UP IN BED HAVING DINNER. NO N/V NOTED. NO S/SX HYPOGLYCEMIA NOTED. NO ACUTE DISTRESS. NO SOB. RESPIRATION EVEN AND UNLABORED. SKIN WARM AND DRY TO TOUCH. ALL NEEDS MET. CALL LIGHT IN REACH. AT BEDSIDE. CONT TO MONITOR.
[2018-01-24 19:00] VITALS: BP_SYST 137
--- NOTE | 2018-01-24 19:00 | NUR ---
CLOSING NOTE PATIENT SITTING UP IN BED. NO ACUTE DISTRESS. NO SOB. RESPIRATION EVEN AND UNLABORED. SKIN WARM AND DRY TO TOUCH USED INCENTIVE SPIROMETER AND NOTED BETWEEN [id number]. CERVICAL DRESSING INTACT. HEMOVAC DRAINING INTACT. ALL NEEDS MET. CALL LIGHT IN REACH. WILL ENDORSE TO ONCOMING SHIFT. AT BEDSIDE.
[2018-01-24] MEDS: ONDANSETRON HCL 4 MG/2 ML VIAL IVP PRN (19:43)
[2018-01-24] MEDS: HYDROcodone/ACETAMIN 10-325 MG TAB PO PRN (19:48)
[2018-01-24] MEDS: ATORVASTATIN 20 MG TABLET PO SCH (21:28)
[2018-01-24] MEDS: ZOLPIDEM TARTRATE 5 MG TABLET PO PRN (22:13)
[2018-01-25 00:44] VITALS: BP_SYST 137
[2018-01-25] MEDS: MORPHINE 4 MG/ML INJ. SYRINGE IVP PRN ×4 (01:22→15:36)
[2018-01-25] MEDS: NACL 0.9% 1,000 ML IV SCH ×2 (01:28→13:37)
[2018-01-25] MEDS: fentaNYL CITRATE/PF 100 MCG/2 ML AMP IVP PRN ×3 (03:42→13:39)
[2018-01-25] MEDS: ceFAZolin SODIUM 1 GM in D5W 50 ML IV SCH ×3 (05:56→22:05)
--- NOTE | 2018-01-25 07:35 | NUR ---
Initial Note Received report from the night nurse Tito. Pt AOX4. No signs of distress noted at this time. Bed is at lowest position with bed alarm on. Call light within reach.
[2018-01-25 07:55] VITALS: BP_SYST 127
[2018-01-25] MEDS: MULTIVITAMINS TAB 1 TABLET PO SCH (08:39)
[2018-01-25] MEDS: SERTRALINE HCL 50 MG TABLET PO SCH (08:49)
[2018-01-25] MEDS: FINASTERIDE 5 MG TABLET (PROSCAR) PO SCH (08:49)
[2018-01-25] MEDS: metFORMIN HCL 500 MG TABLET PO SCH ×2 (08:49→17:59)
[2018-01-25] MEDS: DOCUSATE SODIUM 100 MG CAPSULE PO SCH ×2 (08:49→20:40)
[2018-01-25] MEDS: amLODIPine BESYLATE 5 MG TABLET PO SCH (08:50)
[2018-01-25] MEDS: CYCLOBENZAPRINE HCL 10 MG TABLET (FLEXERIL) PO SCH ×3 (08:50→20:40)
[2018-01-25] MEDS: GABAPENTIN 300 MG CAPSULE PO SCH ×3 (08:50→20:40)
[2018-01-25] MEDS ORDERED: HYDROcodone/ACETAMIN 10-325 MG TAB PO SCH (09:00)
--- NOTE | 2018-01-25 11:35 | NUR ---
RN Rounds Pt sitting on a chair and does not shows any sign of distress at this time. Call light within reach.
[2018-01-25 11:59] VITALS: BP_SYST 116
--- NOTE | 2018-01-25 14:46 | NUR ---
Nutrition F/U Admitting Diagnosis SEPSIS Reviewed Pertinent Medical/Surgical Hx Medical Record Patient Medical History Comment: Pt found w/: Sepsis 2/2 cervical cellulitis S/P Cervical fusion, Cervial Radiculopathy, DJD, DESHAWN, Diabetes, Hyperlipidemia, HTN, insomnia, major depressive disorder per MD notes. 01/24/18 S?P I&D of Cervical Posterior wound Subjective Information Pt is for follow up. Pt seen sitting up in chair at time of RD visit. Pt reported that he is more comfortable in chair that in bed. RD however asked pt to go back to bed for bed scale wt. 242.3 lb (01/25/18). Pt is POD#1. He stated that he is eating well, w/ good appetite. Pt verbalized some food preferences, RD will take note in [employer]. Per EMR, last BM 01/25/18. Abd is soft and non-distended w/ active bowel sounds. I/O: 3020/1060 +1960ml, IV total intake: 1820ml per 12 hrs. PO intake: 100% x 1 meal yesterday. Pt is likely meeting adequate nutrition w/ current oral intake and diet. Pt may benefit from an oral supplement for additional protein for wound healing. Current Diet Order/Nutrition Support [facility] diet Patient/Significant Other Able To Verbalize Education Provided Not Indicated Pertinent Medications vancomycin, zoloft, MVI, colace, metformin, k-dur, NaCl IV Pertinent Labs H/H 9.7L/29.7L, RBC 3.32L, Ca 8.6 WNL (improved) Height (Feet) 5 feet Height (Inches) 8.00 inches Weight (Pounds) 237 pounds BED SCALE WT: 242 lb (01/25/18) --- may be skewed d/t blanket/pillows Weight (Calculated Kilograms) 107.401729 kilograms Patient Weight 107.501 kg Body Mass Index 36.03 kg/m2 %IBW 154 [place]/Adjusted Body Weight 154 lb, 70 kg; ABW Obesity: 175 lb, 80 kg Recent Weight Change Yes - intentional wt loss of 32 lb (12% severe wt loss in 6 months) per pt Weight Status Obese Gastrointestinal Symptoms None Last BM January 25, 2018 Food Allergies No - per pt Usual Diet At Home regular diet, more salads, chicken/fish and vegetables. Skin Integrity Comment: Alen scale: 19; per RN notes, posterior neck w/ incision, S/P cervical fusion Current % PO Good (100%) Estimated Energy Expenditure (kcals/day) 1568-3955 kcal/day (BEE x 1.2-1.5 ABW for Sepsis) Estimated Protein Required (g/day) 120-160 gm/day (1.5-2 gm/kg ABW for Sepsis) Estimated Fluid Required (l/day) 2.4 L/day (30ml/kg IBW for maintenance) Problem/Etiology/Signs/Symptoms Increased nutritional needs related to metabolic demands as evidenced by estimated calorie and protein needs for Sepsis. *ongoing Moderate malnutrition related to acute illness as evidenced by 12% severe wt loss in 6 months and fair appetite. *ongoing Expected Outcomes/Goals Monitor pt appetite and PO intake w/ goal of pt meeting at least 80% of estimated nutritional needs, labs trending WNL, normal GI function, skin integrity/wt maintenance. Dietitian Recommendations *Recommend CCHO 2gm Na diet w/ Boost Plus BID for 5 days. Oral supplement will provide additional 500 kcal and 28 gm protein daily. Follow Up High Risk: F/U in 2-3days
--- NOTE | 2018-01-25 15:06 | NUR ---
Dietitian Recommendations *Recommend CCHO 2gm Na diet w/ Boost Plus BID for 5 days. Oral supplement will provide additional 500 kcal and 28 gm protein daily. Please see Nutrition F/U note for details. MICHAEL BOSTON
--- NOTE | 2018-01-25 15:45 | NUR ---
RN Rounds Pt sitting on a chair and does not complain of any pain or discomfort. Pain medications is given around the clock. Call light within reach.
[2018-01-25 16:44] VITALS: BP_SYST 126
[2018-01-25] MEDS ORDERED: MORPHINE 4 MG/ML INJ. SYRINGE IVP PRN (18:15)
--- NOTE | 2018-01-25 18:55 | NUR ---
Closing Note Pt AOX4. Sitting on a chair with family members in the room. Pt does not shows any sign of distress at this time. Pt has been seen by Neuro Damion Mojica. Call light is within reach.
--- NOTE | 2018-01-25 19:30 | NUR ---
OPENING NOTE Received report from Abdoul day shift RN. Pt resting in bed awake, alert, oriented x4. Family at the bedside. Breathing unlabored and even. No signs of distress, no needs at this time. Fall and safety precautions in place. Bed in lowest position, brake on, call light within reach. Bed alarm refused. IVF as ordered 90cc/hr via left upper arm PICC line. Clean, dry, intact. PICC line dressing change due 01/30/18. Neck brace in place. Hemovac in place. Red drainage noted. Will continue to monitor.
[2018-01-25] MEDS: ATORVASTATIN 20 MG TABLET PO SCH (20:40)
--- NOTE | 2018-01-25 20:44 | NUR ---
Blood sugar 101. Per PRN insulin sliding scale, no insulin coverage needed per order
[2018-01-25 20:49] VITALS: BP_SYST 136
[2018-01-25] MEDS: OXYCODONE/ACETAMINOPHEN *10*mg/325 mg TABLET PO PRN (20:53)
--- NOTE | 2018-01-25 20:54 | NUR ---
Pt c/o 04/03 neck pain. Administered PRN percocet PO as ordered. Educated pt on s/e and safety. Encouraged call for assist. Pt refused bed alarm.
--- NOTE | 2018-01-25 21:07 | NUR ---
Pt resting in bed awake, alert, oriented x4. at the bedside. Breathing unlabored and even. No signs of distress, no needs at this time. Fall and safety precautions in place. Bed in lowest position, brake on, call light within reach. Bed alarm refused. IVF as ordered. Will continue to monitor.
[2018-01-25] MEDS: ZOLPIDEM TARTRATE 5 MG TABLET PO PRN (22:05)
--- NOTE | 2018-01-25 22:08 | NUR ---
Pt c/o insomnia. Administered PRN ambien PO as ordered. Pt is aware of side effects. Encouraged call for assist. Bed alarm refused.
--- NOTE | 2018-01-25 23:18 | NUR ---
Pt resting in with eyes closed. Breathing unlabored and even. No signs of distress, no needs at this time. Fall and safety precautions in place. Bed in lowest position, brake on, call light within reach. IVF as ordered. Will continue to monitor.
[2018-01-26 00:18] VITALS: BP_SYST 135
--- NOTE | 2018-01-26 00:24 | NUR ---
Pt resting in with eyes closed. Breathing unlabored and even. No signs of distress, no needs at this time. Fall and safety precautions in place. Bed in lowest position, brake on, call light within reach. IVF infusing as ordered. Will continue to monitor.
[2018-01-26] MEDS: NACL 0.9% 1,000 ML IV SCH ×3 (02:10→22:55)
[2018-01-26] MEDS: ceFAZolin SODIUM 1 GM in D5W 50 ML IV SCH ×3 (06:22→21:37)
--- NOTE | 2018-01-26 06:25 | NUR ---
Hemovac drained: 10mL of red drainage collected and emptied.
[2018-01-26] MEDS: OXYCODONE/ACETAMINOPHEN *10*mg/325 mg TABLET PO PRN ×3 (06:31→21:34)
--- NOTE | 2018-01-26 06:33 | NUR ---
Pt c/o pain. Administered PRN percocet PO as ordered. Educated pt on s/e and safety. Bed alarm refused.
--- NOTE | 2018-01-26 07:40 | NUR ---
CLOSING NOTE Gave report to day shift nurseRossi. Pt resting in bed awake, alert, oriented x4. Breathing unlabored and even. No signs of distress, no needs at this time. All needs met throughout shift. Fall and safety precautions in place throughout shift. Bed in lowest position, brake on, call light within reach. Bed alarm refused. IVF infusing as ordered. Pt c/o right calf pain. No redness, swelling, nor warmth noted. Pt has hx of dvt of right calf, so pt was concerned. Endorsed to day shift RN to f/u with .
[2018-01-26 07:42] VITALS: BP_SYST 127
--- NOTE | 2018-01-26 07:43 | NUR ---
MD ROUNDS DR TAHIR MCMANUS, AWARE OF PATIENT'S CONDITION, MADE HIM AWARE THAT PT HAS PAIN ON RIGHT LEG AND HAS HISTORY OF DVT IN THAT LEG, NO REDNESS NOTED ON THAT LEG, SKIN IS INTACT, NO EDEMA, NORMAL SKIN TEMPERATURE COMPARED TO THE REST OF HIS BODY, PER MD HE WILL ORDER A ULTRASOUND ON THAT LEG TODAY.
--- NOTE | 2018-01-26 07:45 | NUR ---
INITIAL NOTE RECEIVED PT SITTING UP IN CHAIR, NO S/S OF DISTRESS OR SOB NOTED, PT HAS NO C/O PAIN AT THIS, PT IN STABLE CONDITION, PT AAOX4, VERBAL. IV CATHETER PATENT, NO SIGNS OF INFECTION OR INFILTRATION NOTED. PT HAS A NECK BRACE AND A HEMOVAC DRAINING VIA SUCTION. PT HAS A LEFT UPPER ARM PICC LINE, BOTH PORTS FLUSH AND HAVE BLOOD RETURN, DRESSING CLEAN AND DRY, NON OCCLUDED. PT HAS A DRESSING ON HIS BACK, CLEAN AND DRY. PT HAS BILATERAL SCD'S ORDERED BUT OFF DUE TO PT SITTING UP IN CHAIR. PT STATED HE WILL HAVE THEM BACK ON WHEN HE GOES BACK IN BED. PT EDUCATED ON USE OF INCENTIVE SPIROMETER, PT TO USE 10 TIMES AN HOUR WHILE AWAKE, PT VERBALIZED UNDERSTANDING PT AT 1000ML. BED AT LOWEST POSITION, CALL LIGHT WITHIN REACH, WILL CONTINUE TO MONITOR PT FOR ANY CHANGES, FALL PRECAUTIONS IN PLACE, SAFETY PRECAUTIONS IN PLACE.
[2018-01-26 08:26] VITALS: BP_SYST 127
[2018-01-26] MEDS: FINASTERIDE 5 MG TABLET (PROSCAR) PO SCH (09:05)
[2018-01-26] MEDS: metFORMIN HCL 500 MG TABLET PO SCH ×2 (09:05→17:15)
[2018-01-26] MEDS: SERTRALINE HCL 50 MG TABLET PO SCH (09:05)
[2018-01-26] MEDS: CYCLOBENZAPRINE HCL 10 MG TABLET (FLEXERIL) PO SCH ×3 (09:05→21:33)
[2018-01-26] MEDS: MULTIVITAMINS TAB 1 TABLET PO SCH (09:05)
[2018-01-26] MEDS: DOCUSATE SODIUM 100 MG CAPSULE PO SCH ×2 (09:05→21:33)
[2018-01-26] MEDS: amLODIPine BESYLATE 5 MG TABLET PO SCH (09:05)
[2018-01-26] MEDS: GABAPENTIN 300 MG CAPSULE PO SCH ×3 (09:05→21:33)
--- NOTE | 2018-01-26 10:39 | NUR ---
ROUNDS PT IN BED, NO S/S OF DISTRESS OR SOB NOTED, PT HAS NO C/O PAIN AT THIS TIME, PT IN STABLE CONDITION, PT RESTING COMFORTABLY, WILL CONTINUE TO MONITOR PT FOR ANY CHANGES.
[2018-01-26] MEDS: INSULIN REGULAR, HUMAN 100 UNITS/ML, 10 ML VIAL (novoLIN R) SUBCUT PRN ×2 (11:32→17:16)
--- NOTE | 2018-01-26 11:35 | NUR ---
DRAIN DRAIN ACCIDENTALLY CAME OUT PER PT, HE WAS WAKING UP TO GO TO THE RESTROOM AND IT WAS OUT, NO ACTIVE BLEEDING NOTED, CATHETER APPEARS TO BE INTACT, NOTED STITCHES ON NECK STILL PRESENT, DR PATRICIO PAGED TO NOTIFY. Addendum: 01/26/18 at 1443 by Rossi Otero RN SPOKE WITH DR DESOUZA IN REGARDS TO DRAIN COMING OUT AND HE STATED IT WAS FINE AND THAT HE WOULD SPEAK WITH DR PATRICIO IN REGARDS TO SURGERY AND CALL BACK WITH ORDERS FOR DISCHARGE Addendum: 01/26/18 at 1651 by Rossi Otero RN ALSO MADE MD AWARE THAT PT HAD QUESTIONS IN REGARDS TO CARE OF INCISION AND SUTURES, ALONG WITH WHEN TO SHOWER AND WHEN TO FOLLOW UP
--- NOTE | 2018-01-26 11:35 | NUR ---
PAGED PAGED KATE LUCAS AT [phone] SPOKE WITH FARIDA.
[2018-01-26 12:52] VITALS: BP_SYST 131
--- NOTE | 2018-01-26 13:09 | NUR ---
2ND PAGE OUT TO PAGED LEO LUCAS, AT [phone] SPOKE WITH KELSEA.
--- NOTE | 2018-01-26 13:43 | NUR ---
DISCHARGE PLANNING - DISCHARGE WITH HOME HEALTH FOR IV ANTIBIOTICS C/S with Ken at [facility] ph: [phone]. She provided in-network home health provider to do home IV atbx : Replaced By [facility] ph: [phone]. Address: [address], [place]. They do not have any home health care IV infusion provider located in [place], [place]. She recommended to contact [facility] ([facility]) ph: [phone]. C/S with Cheri @[facility], ph: [phone]. She stated that they do not have any in-network home health providers in [place], [place] and recommended to get approval/authorization from [facility] ph: [phone] [facility] ph: [phone] as they will be paying for the [id number] services. Attempted to contact [facility] ph: [phone]. Left vm regarding need for auth for pt to get home IV atbx in [place], [place] (@his home address the first 14 days then to complete the last 3-5 weeks in [place], [place] (his work location). Message instructed to fax request to : . Request faxed. Pt's home address: [address], [place] [address] Pt's address in [place]: [address], [address], [place] [address] Attempted to contact [facility]Network located in [facility] - Replaced By [facility] ph: [phone]. Left vm inquiring if they have a branch or sister home health care [place] [address] area. Left CM contact phone number. Informed pt about his HMO not having in-network provider in [place] and that he might have to pay higher cost. He agreed to higher cost of out of network provider. Addendum: 01/26/18 at 1456 by Marta Brooks RN ) to Dr. Kim office failed. C/S with reeler operator to [facility] ph: [phone]. Requested for correct fax#. She gave FAX #: [phone]. Re-faxed request and clinical info. Confirmation receipt received. Addendum: 01/26/18 at 1634 by Marta Brooks RN C/S with NGOC Hand @Replaced By [facility] ph: [phone]. She stated that Home Infusion is only for homebound pts. Pt need to go to [facility] ph: [phone]. (if calling from [facility] ph: [phone][place] [phone]). Pt agreed to outpt infusion center in [place] after discussing with his . Attempted to contact [facility] ph: [phone] multiple times. No response, no vm -unable to leave vm. Will attempt again in AM as they are open on Saturdays as well. Notified pt. Addendum: 01/27/18 at 1423 by Marta Brooks RN Contact # for [facility]: [phone].
--- NOTE | 2018-01-26 14:35 | NUR ---
PAGED DR DESOUZA REGARDING ORDERS
--- NOTE | 2018-01-26 14:46 | NUR ---
ROUNDS PT IN BED, NO S/S OF DISTRESS OR SOB NOTED, PT HAS NO C/O PAIN AT THIS TIME, PT IN STABLE CONDITION, PT WATCHING TV. WILL CONTINUE TO MONITOR PT FOR ANY CHANGES.
[2018-01-26 16:05] VITALS: BP_SYST 131
--- NOTE | 2018-01-26 16:50 | NUR ---
MD CALL DR DESOUZA HAS NOT CALLED BACK WITH ORDERS FOR DISCHARGE OR ORDERS OF WHEN PT IS SUPPOSED TO FOLLOW UP, CARE OF INCISION AND RADHA AND WHEN TO SHOWER. AWAITING CALL BACK.
--- NOTE | 2018-01-26 16:51 | NUR ---
ROUNDS PT IN BED, NO S/S OF DISTRESS OR SOB NOTED, PT HAS NO C/O PAIN AT THIS TIME, PT IN STABLE CONDITION, PT WATCHING TV. WILL CONTINUE TO MONITOR PT FOR ANY CHANGES. Addendum: 01/26/18 at 1654 by Rossi Otero RN PT UPDATED ON POC AND WHAT DR DESOUZA STATED AND WHAT THE HOUSE PARENT STATED ABOUT THE ANTIBIOTICS NOT BEING SET UP YET.
--- NOTE | 2018-01-26 18:15 | NUR ---
CLOSING NOTE PT IN BED, NO S/S OF DISTRESS OR SOB NOTED, PT HAS NO C/O PAIN AT THIS, PT IN STABLE CONDITION, PT AAOX4, VERBAL. IV CATHETER PATENT, NO SIGNS OF INFECTION OR INFILTRATION NOTED. PT HAS A NECK BRACE IN PLACE. PT HAS BILATERAL SCD'S IN PLACE. PT EDUCATED ON USE OF INCENTIVE SPIROMETER, PT AT 1000ML. BED AT LOWEST POSITION, CALL LIGHT WITHIN REACH, WILL ENDORSE CARE OF PT TO INCOMING NURSE, FALL PRECAUTIONS IN PLACE, SAFETY PRECAUTIONS IN PLACE. DR DESOUZA REPAGED BECAUSE HE DID NOT CALL BACK AFTER SPEAKING WITH DR PATRICIO. AWAITING CALL BACK.
--- NOTE | 2018-01-26 19:20 | NUR ---
OPENING NOTE Received report from day shift nurse. Pt is staying til monday due to insurance issue. See CM notes. Pt is aware. Pt resting in bed awake, alert, oriented x4. at the bedside. Breathing unlabored and even. No signs of distress, no needs at this time. Fall and safety precautions in place. Bed in lowest position, brake on, call light within reach. Bed alarm refused. IVF as ordered. SCDs in place. Will continue to monitor.
--- NOTE | 2018-01-26 20:00 | NUR ---
Spoke to Dr. Navarrete, Informed him that pt is staying til monday. Said that pt can shower if he would like to. Informed pt.
[2018-01-26 20:27] VITALS: BP_SYST 141
--- NOTE | 2018-01-26 21:30 | NUR ---
Endorsed care to NGOC Pineda.
--- NOTE | 2018-01-26 21:30 | NUR ---
INITIAL NOTE PATIENT IS RESTING IN BED WITH AT BEDSIDE, STABLE, NO SIGNS OF RESPIRATORY DISTRESS. PLAN OF CARE FOR THE EVENING IS COMMUNICATED WITH PATIENT AND . ACCUCHECK AT THIS TIME IS 95, NO INSULIN COVERAGE IS NEEDED PER SSI. PICC LINE IS SECURE INTACT AND RUNNING IVF ORDERED. CALL LIGHT TEACH BACK IS SUCCESSFUL. BED IS LOCKED, ALARMED, AND AT THE LOWEST LEVEL.
[2018-01-26] MEDS: ATORVASTATIN 20 MG TABLET PO SCH (21:32)
[2018-01-26] MEDS: ZOLPIDEM TARTRATE 5 MG TABLET PO PRN (22:53)
--- NOTE | 2018-01-26 23:27 | NUR ---
NOTE PATIENT IS SLEEPING, STABLE, NO SIGNS OF RESPIRATORY DISTRESS. CPAP IS SECURE AND INTACT. CALL LIGHT IS WITHIN REACH. BED IS LOCKED, ALARMED, AND AT THE LOWEST LEVEL.
[2018-01-27 00:08] VITALS: BP_SYST 158
--- NOTE | 2018-01-27 06:34 | NUR ---
CLOSING NOTE PATIENT IS RESTING AT BEDSIDE, STABLE, NO SIGNS OF RESPIRATORY DISTRESS. ACCUCHECK AT THIS TIME IS 89, NO INSULIN COVERAGE IS NEEDED PER SSI. PICC LINE IS SECURE INTACT AND RUNNING IVF ORDERED. CALL LIGHT WITHIN REACH. BED IS LOCKED, ALARMED, AND AT THE LOWEST LEVEL. WILL CONTINUE TO MONITOR UNTIL SHIFT REPORT IS GIVEN AT BEDSIDE TO AM NURSE.
[2018-01-27] MEDS: ceFAZolin SODIUM 1 GM in D5W 50 ML IV SCH ×3 (06:48→21:06)
[2018-01-27 08:00] VITALS: BP_SYST 143
[2018-01-27] MEDS: MULTIVITAMINS TAB 1 TABLET PO SCH (09:08)
[2018-01-27] MEDS: amLODIPine BESYLATE 5 MG TABLET PO SCH (09:08)
[2018-01-27] MEDS: metFORMIN HCL 500 MG TABLET PO SCH ×2 (09:08→17:05)
[2018-01-27] MEDS: DOCUSATE SODIUM 100 MG CAPSULE PO SCH ×2 (09:08→21:05)
[2018-01-27] MEDS: SERTRALINE HCL 50 MG TABLET PO SCH (09:08)
[2018-01-27] MEDS: CYCLOBENZAPRINE HCL 10 MG TABLET (FLEXERIL) PO SCH ×3 (09:08→21:05)
[2018-01-27] MEDS: FINASTERIDE 5 MG TABLET (PROSCAR) PO SCH (09:08)
[2018-01-27] MEDS: GABAPENTIN 300 MG CAPSULE PO SCH ×3 (09:08→21:05)
--- NOTE | 2018-01-27 11:35 | NUR ---
DISCHARGE PLANNING - DISCHARGE TO HOME WITH WOUND CARE AND IV ATBX Spoke with jessica RN, Annamarie, and she stated that there is no surgical wound dressing change since surgery 01/24 and drainage drain accidentally pulled out 01/26 in the afternoon and this was reported to physician. spoken to patient and he concurs to above events. Attempted to contact neurosurgery Dr. Bruno ph: [phone]. Spoke with the 'office exchange' and will page Dr. Gottlieb as Dr. Bruno is not on today. Addendum: 01/27/18 at 1208 by Marta Brooks RN C/S with Dr. Carissa Lincoln to give update. He said specifics of wound care will need to come from Dr. Bruno / or dimensional integration engineer for her. Addendum: 01/27/18 at 1232 by Marta Brooks RN Attempted to contact [facility] [place]: [phone], no vm, no cupola operator insulation to assist. Their automated answering machine instructs to contact them on regular business hours (Mon-Fri). . Addendum: 01/27/18 at 1530 by Marta Brooks RN Faxed to [facility], d/c order for wound care and IV atbx prescription and order . confirmation Receipt received. C/S with inpt NGOC Arana and gave her above update. Informed her that pt needs specific out-pt wound care instructions and order from neurosurgery and clearance to discharge pt to home. Home Health will need all of above. Pt will also will need 3 days worth of wound care dressing supplies to go home with. She verbalized understanding. Plan: Inpt RN to follow-up with Neurosurgery specific wound care/dressing instructions for home health. : Inpt RN to follow-up with Neurosurgery for clearance to d/c prior to discharging pt home. : Case Management to fax to [facility] wound care/dressing instructions for home health and confirm 1st schedule home health visit. Pt prefers late morning schedule.
[2018-01-27] MEDS: NACL 0.9% 1,000 ML IV SCH ×2 (12:07→23:39)
--- NOTE | 2018-01-27 12:10 | NUR ---
BS CHECK BLOOD SUGAR CHECKD- 96. NO COVERAGE NEEDED. NEW IVF HUNG WELL.
[2018-01-27 12:59] VITALS: BP_SYST 128
[2018-01-27] MEDS: OXYCODONE/ACETAMINOPHEN *10*mg/325 mg TABLET PO PRN ×2 (14:40→22:22)
[2018-01-27 16:45] VITALS: BP_SYST 136
--- NOTE | 2018-01-27 17:08 | NUR ---
MED PASS/BS CHECK METFORMIN PO GIVEN. BS CHECK-88 NO COVERAGE NEEDED.
[2018-01-27 20:00] VITALS: BP_SYST 138
--- NOTE | 2018-01-27 20:18 | NUR ---
Opening Notes Received the patient sitting in the bedside chair. Family is at the bedside. Patient is aox4. Has a neck brace for s/p ID of the neck. LISA PICC line clean dry and intact. Patient has refused the bed alarm, states "i use the bathroom frequently, that i don't to the the alarm on". Informed patient of the risks and benefits of having it on. Oriented the patient to the room and use of the call lights. Patient states no pain or respiratory distress. Will monitor for any change of condition and will monitor on rounds.
--- NOTE | 2018-01-27 21:00 | NUR ---
Blood Sugar 83. No coverage needed.
[2018-01-27] MEDS: ATORVASTATIN 20 MG TABLET PO SCH (21:05)
[2018-01-27] MEDS: ZOLPIDEM TARTRATE 5 MG TABLET PO PRN (21:57)
--- NOTE | 2018-01-27 22:23 | NUR ---
Patient in bed resting. Requested Percocet pain med 05/04 on the neck. Patient states he will be going to sleep and will be using CPAP. Will monitor hourly on rounds.
[2018-01-28] VITALS: BP_SYST 142
--- NOTE | 2018-01-28 00:47 | NUR ---
Patient in bed asleep using CPAP. Administered new NS bag. Call light within reach and no complaints of pain or respiratory distress. IV site intact, clean and dry. Bed alarm off at the patients request.
--- NOTE | 2018-01-28 02:40 | NUR ---
Patient still asleep on CPAP. No pain or respiratory distress at this time. Bedside table within reach. Will monitor for any change of condition.
--- NOTE | 2018-01-28 04:44 | NUR ---
Patient still asleep. No change of condition.
[2018-01-28] MEDS: ceFAZolin SODIUM 1 GM in D5W 50 ML IV SCH ×3 (06:03→22:32)
--- NOTE | 2018-01-28 06:39 | NUR ---
Closing Notes Patient removed CPAP. Awake and alert x4. Blood sugar at 92 and no coverage needed. IV atx being infused and tolerated. Bed alarm not active at the patients request. All needs have been and will endorse to the day shift nurse.
--- NOTE | 2018-01-28 07:15 | NUR ---
OPENING NOTE PATIENT REPORT RECEIVED FROM NGOC LANDRY. PATIENT RESTING COMFORTABLY. NEEDS ARE MET AT THIS TIME. PATIENT UP TO A CHAIR, REFUSING BED ALARM. AMBULATORY WITHIN ROOM. ENCOURAGED TO CALL IF ASSISTANCE NEEDED, DIZZINESS, OR NAUSEA PRESENT. PATIENT HAVING PAIN AT INCISION SITE S/P I & D. WILL REPORT TO PHYSICIAN. PATIENT HAS IVF RUNNING PER MD ORDERS. PATIENT HAS AC/HS BLOOD SUGARS, LAST BLOOD SUGAR WAS 92, NOT NEEDING INSULIN COVERAGE. WILL CONTINUE TO FOLLOW UP AND MONITOR PATIENT FOR CHANGES IN STATUS.
[2018-01-28 08:19] VITALS: BP_SYST 123
[2018-01-28] MEDS: MULTIVITAMINS TAB 1 TABLET PO SCH (08:20)
[2018-01-28] MEDS: metFORMIN HCL 500 MG TABLET PO SCH ×2 (08:20→17:40)
[2018-01-28] MEDS: CYCLOBENZAPRINE HCL 10 MG TABLET (FLEXERIL) PO SCH ×3 (08:20→20:53)
[2018-01-28] MEDS: DOCUSATE SODIUM 100 MG CAPSULE PO SCH ×2 (08:20→20:53)
[2018-01-28] MEDS: GABAPENTIN 300 MG CAPSULE PO SCH ×3 (08:21→20:53)
[2018-01-28] MEDS: amLODIPine BESYLATE 5 MG TABLET PO SCH (08:21)
[2018-01-28] MEDS: FINASTERIDE 5 MG TABLET (PROSCAR) PO SCH (08:21)
[2018-01-28] MEDS: SERTRALINE HCL 50 MG TABLET PO SCH (08:21)
--- NOTE | 2018-01-28 10:10 | NUR ---
WOUND CARE WOUND CARE COMPLETED ON SURGICAL SITE. CLEANSED WITH NORMAL SALINE AND GAUZE. APPLIED FOAM DRESSING AND OP SITE TO SITE. RESUMED NECK BRACE. PATIENT HAVING PAIN AT SITE, TO RIGHT SIDE. BRUISING AND REDNESS TO SITE. WILL CALL REGARDING. MD HARO MADE AWARE OF NEW ONSET PAIN. WILL FOLLOW UP.
--- NOTE | 2018-01-28 10:18 | NUR ---
NOTE PAGED MD REGARDING NEW ONSET PAIN. AWAITING RETURN CALL. PAGED THROUGH ANSWERING SERVICE. DR. BUSH WILL BE RETURNING THE CALL PER ANSWERING SERVICE.
--- NOTE | 2018-01-28 10:33 | NUR ---
RACHELLE BUSH RETURNED CALL, STATES HE WAS PLACED SECONDARY SOCIAL STUDIES TEACHER FOR ANSWERING QUESTIONS, BUT ISSUES WITH INCISION SITES WILL NEED TO BE BROUGHT TO THE ATTENTION OF DR. DESOUZA. WILL CALL BACK THROUGH ANSWERING SERVICE TO RONALDO.
--- NOTE | 2018-01-28 10:41 | NUR ---
DEO DESOUZA PAGED REGARDING INCISION SITE PER DR. BUSH RECOMMENDATION. AWAITING RETURN CALL.
--- NOTE | 2018-01-28 10:47 | NUR ---
DEO DESOUZA RETURNED CALL, WILL COME IN TO SEE PATIENT. MADE AWARE OF NEW ONSET PAIN. PATIENT AWARE OF PENDING CONSULTATION.
[2018-01-28] MEDS: NACL 0.9% 1,000 ML IV SCH ×2 (10:58→20:53)
[2018-01-28 12:08] VITALS: BP_SYST 130
--- NOTE | 2018-01-28 12:27 | NUR ---
NOTE PATIENT RESTING COMFORTABLY. NEEDS ARE MET AT THIS TIME. PATIENT BLOOD GLUCOSE LEVEL OF 82, NO INSULIN NEEDED FOR COVERAGE. PATIENT UPRIGHT TO CHAIR FOR LUNCH. PATIENT ENCOURAGED TO CALL IF NEEDS ARISE. WILL CONTINUE TO FOLLOW UP AND MONITOR PATIENT FOR CHANGES IN STATUS.
--- NOTE | 2018-01-28 14:44 | NUR ---
NOTE PATIENT RESTING COMFORTABLY. AWAITING CONSULTATION WITH DR. DESOUZA. PATIENT NEEDS ARE MET AT THIS TIME. PATIENT ENCOURAGED TO CALL IF NEEDS ARISE. WILL CONTINUE TO MONITOR FOR CHANGES IN STATUS.
--- NOTE | 2018-01-28 15:52 | NUR ---
DEO AT BEDSIDE SPOKE WITH PATIENT REGARDING WOUND CARE INSTRUCTIONS. PATIENT CAN HAVE INCISION OPEN TO AIR. AWARE OF MILD DRAINAGE, OKAY TO HAVE FOAM APPLIED WHILE DRAINING. ONCE NO DRAINAGE, OKAY TO LEAVE OPEN TO AIR. HE WILL ORDER CT SCAN TO EVALUATE FOR FLUID POCKET. PATIENT SITTING UPRIGHT AT BEDSIDE. ENCOURAGED TO CALL IF NEEDS ARISE. AWAITING CT SCAN. WILL CONTINUE TO FOLLOW UP AND MONITOR.
--- NOTE | 2018-01-28 16:12 | NUR ---
CT CONTRAST/METFORMIN DISCUSSED WITH DR. DESOUZA ABOUT CT NECK WITH CONTRAST. PATIENT HAD METFORMIN THIS MORNING AND 1800 DOSE THIS EVENING. PER DR. DESOUZA, KIDNEY FUNCTION TEST ARE NORMAL, PATIENT ON IVF, PATIENT IS OKAY TO CONTINUE METFORMIN.
[2018-01-28 16:35] VITALS: BP_SYST 144
[2018-01-28] MEDS ORDERED: IOHEXOL 100 ML IV ONE (16:37)
--- NOTE | 2018-01-28 17:20 | NUR ---
NOTE PATIENT RETURNED FROM CT SCAN NECK WITH CONTRAST. PATIENT TOLERATED PROCEDURE WELL. PATIENT SITTING UPRIGHT IN CHAIR AT BEDSIDE. PATIENT AT BEDSIDE FOR COMFORT AND SAFETY. RESUMED PATIENTS IVF. PATIENT ENCOURAGED TO CALL IF NEEDS ARISE. AWAITING FSBS, AND METFORMIN ADMINISTRATION.
--- NOTE | 2018-01-28 18:58 | NUR ---
CLOSING NOTE PATIENT RESTING COMFORTABLY. FAMILY AT BEDSIDE FOR COMFORT AND SAFETY. PATIENT DRESSING CLEAN DRY AND INTACT. WILL ENDORSE TO PM SHIFT NURSE, OKAY TO GIVEN METFORMIN PER MD DESOUZA. PATIENT CT SCAN RESULTS PENDING. WILL GIVE REPORT TO DYE COLORIST FORMULATOR NURSE. WILL ENDORSE TO NURSE OKAY TO LEAVE DRESSING OPEN TO AIR IF NO LONGER DRAINING. FOAM IS IN PLACE TO CATCH DRAINAGE PATIENT IS IN [place].
--- NOTE | 2018-01-28 20:48 | NUR ---
OPENING NOTE PT ENDORSEMENT REPORT RECEIVED FROM DAY SHIFT RN, TERRA. PT RESTING COMFORTABLY IN CHAIR, AT BEDSIDE. CHEST RISE EVEN AND UNLABORED. PAIN DENIED AT THIS TIME. NO SOB OR DISCOMFORT NOTED AT THIS TIME. SAFETY MEASURES IN PLACE, BED WHEELS LOCKED, BED IN LOWEST POSITION, BED RAILS UP X2, CALL LIGHT WITHIN REACH, BEDSIDE TABLE WITHIN REACH. ALL NEEDS ARE MET AT THIS TIME. PT REFUSING BED ALARM. PT AMBULATORY WITHIN ROOM. ENCOURAGED TO CALL IF ASSISTANCE NEEDED. PT'S IVF RUNNING WELL PER MD ORDERS. WILL CONTINUE TO FOLLOW UP AND MONITOR PATIENT FOR CHANGES IN STATUS.
--- NOTE | 2018-01-28 21:00 | NUR ---
RN ROUNDS PT RESTING IN BED COMFORTABLY IN SEMI-FOWLERS POSITION. AT BEDSIDE. CHEST RISE EVEN AND UNLABORED. PAIN DENIED AT THIS TIME. NO SOB OR DISCOMFORT NOTED AT THIS TIME. IVF RUNNING WELL. PICC ISRAEL LOCATED ON PT'S LEFT ARM, DRY AND INTACT, PT'S LEFT ARM CIRCUMFERENCE, 33 CM AND 3.5 CM FOR PIC LINE MEASUREMENT, WILL CONTINUE TO MONITOR. SPINAL DRESSING ON THE BACK OF PT'S NECK IS DRY AND INTACT. VITAL SIGNS WNL. SCHEDULED MEDICATIONS ADMINISTERED ORDERED. PT TOLERATED WELL. BLOOD SUGAR WAS 85 AT 2100, NO INSULIN COVERAGE NEEDED AT THIS TIME. SAFETY MEASURES IN PLACE, BED WHEELS LOCKED, BED IN LOWEST POSITION, BED RAILS UP X2, CALL LIGHT WITHIN REACH, BEDSIDE TABLE WITHIN REACH. ALL NEEDS ARE MET AT THIS TIME. PT REFUSING BED ALARM. ENCOURAGED TO CALL IF ASSISTANCE NEEDED. WILL CONTINUE TO FOLLOW UP AND MONITOR PT.
[2018-01-28] MEDS ORDERED: ATORVASTATIN 20 MG TABLET ONE (21:20)
[2018-01-28] MEDS: ATORVASTATIN 20 MG TABLET PO SCH (21:22)
--- NOTE | 2018-01-28 22:30 | NUR ---
RN ROUNDS PT RESTING IN BED COMFORTABLY. CHEST RISE EVEN AND UNLABORED. NO SOB NOTED. NO DISTRESS NOTED. PT DENIES PAIN AT THIS TIME. ANCEF ADMINISTERED ORDERED. PT TOLERATED WELL. PRN AMBIEN 10 MG ADMINISTERED ORDERED PER PT'S REQUEST. WILL CONTINUE TO MONITOR PT. ALL NEEDS MET AT THIS TIME. SAFETY MEASURES IN PLACE. WILL CONTINUE TO MONITOR.
[2018-01-28] MEDS: ZOLPIDEM TARTRATE 5 MG TABLET PO PRN (22:32)
[2018-01-28 23:57] VITALS: BP_SYST 156
--- NOTE | 2018-01-29 04:03 | NUR ---
RN ROUNDS PT RESTING COMFORTABLY IN BED WITH EYES CLOSED, CPAP ON. CHEST RISE EVEN AND UNLABORED. NO SOB OR DISCOMFORT NOTED AT THIS TIME. SAFETY MEASURES IN PLACE, BED WHEELS LOCKED, BED IN LOWEST POSITION, BED RAILS UP X2, CALL LIGHT WITHIN REACH, BEDSIDE TABLE WITHIN REACH. ALL NEEDS ARE MET AT THIS TIME. PT REFUSED BED ALARM. PT'S IVF RUNNING WELL PER MD ORDERS. WILL CONTINUE TO FOLLOW UP AND MONITOR PATIENT FOR CHANGES IN STATUS.
[2018-01-29] MEDS: NACL 0.9% 1,000 ML IV SCH ×2 (06:08→17:50)
--- NOTE | 2018-01-29 06:15 | NUR ---
CLOSING NOTE WILL ENDORSE PT REPORT TO DAY SHIFT NURSE. PT RESTING COMFORTABLY IN BED WITH EYES CLOSED. CHEST RISE EVEN AND UNLABORED. NO SOB OR DISCOMFORT NOTED AT THIS TIME. PT EASILY AWAKEN. IVF INFUSING WELL. ALL SCHEDULED MEDICATIONS ADMINISTERED ORDERED. PT TOLERATED WELL. ACCU CHECK @0630 76, NO INSULIN COVERAGE NEEDED AT THIS TIME. ALL NEEDS MET THROUGHOUT SHIFT. SAFETY MEASURES IN PLACE BED WHEELS LOCKED, BED IN LOWEST POSITION, BED RAILS UP X2, CALL LIGHT WITHIN REACH, BEDSIDE TABLE WITHIN REACH. PT REFUSING BED ALARM. WILL CONTINUE TO FOLLOW UP AND MONITOR PATIENT FOR CHANGES IN STATUS WHILE ON THE FLOOR.
--- NOTE | 2018-01-29 07:20 | NUR ---
Initial Note Received report from the night nurse Sendy. Pt AOX4 and sitting on a chair. No signs of distress noted at this time. Call light within reach.
[2018-01-29 07:30] VITALS: BP_SYST 143
[2018-01-29] MEDS: metFORMIN HCL 500 MG TABLET PO SCH ×4 (08:00→17:50)
[2018-01-29] MEDS: MULTIVITAMINS TAB 1 TABLET PO SCH (09:02)
[2018-01-29] MEDS: GABAPENTIN 300 MG CAPSULE PO SCH ×3 (09:02→21:20)
[2018-01-29] MEDS: amLODIPine BESYLATE 5 MG TABLET PO SCH (09:02)
[2018-01-29] MEDS: DOCUSATE SODIUM 100 MG CAPSULE PO SCH ×2 (09:03→21:00)
[2018-01-29] MEDS: CYCLOBENZAPRINE HCL 10 MG TABLET (FLEXERIL) PO SCH ×3 (09:06→21:21)
[2018-01-29] MEDS: SERTRALINE HCL 50 MG TABLET PO SCH (09:06)
[2018-01-29] MEDS: FINASTERIDE 5 MG TABLET (PROSCAR) PO SCH (09:09)
--- NOTE | 2018-01-29 09:27 | NUR ---
CT CONTRAST/METFORMIN As per the pt and as per previous primary nurse notes DR. DESOUZA authorized to continues with Metformin after the CT with IV contrast. per MD KIDNEY FUNCTION TEST ARE NORMAL, PATIENT ON IVF, PATIENT IS OKAY TO CONTINUE METFORMIN.
--- NOTE | 2018-01-29 11:32 | NUR ---
RN Rounds Pt awake and sitting on a chair. Pt does not complain of any pain or discomfort. Call light within reach.
[2018-01-29 11:53] VITALS: BP_SYST 146
--- NOTE | 2018-01-29 15:40 | NUR ---
RN Rounds Pt sitting on the side of the bed. No signs on distress noted at this time. Bed is at lowest position with bed alarm on. Call light within reach.
--- NOTE | 2018-01-29 15:42 | NUR ---
DISCHARGE PLANNING - REQUEST FOR SPECIFICS ON WOUND CARE FOR HOME HEALTH CT w/ contrast done and reading is available. Neurosurgery is yet to to order wound care instructions. Informed patient of above. Pt verbalized understanding and stated he will remind rounding neurosurgeon when they will see him today. Pt anticipating d/c in am after IV antibiotics.
--- NOTE | 2018-01-29 16:43 | NUR ---
Blood Sugar 62. Apple juice given
[2018-01-29 17:06] VITALS: BP_SYST 147
[2018-01-29 20:00] VITALS: BP_SYST 114
--- NOTE | 2018-01-29 20:00 | NUR ---
Initial PM Note Pt is fully awake, alert and oriented x4. Speech is clear and pt is able to make his needs known. Pt's family members are visiting at the bedside. Posterior neck dressing is dry and intact with hard cervical collar on. Pt denies pain, numbness or tingling sensations. Bilateral hand beer runner are firm. Skin is warm and dry to touch. No signs or symptoms of hypoglycemia or hyperglycemia noted. Pt declines SCD's at this time. Pt stated he has ambulated in the hallway without any difficulty. Call light is with pt. Bed is in the lowest and locked positions. Pt was instructed to call for assistance as needed and pt verbalized understanding.
--- NOTE | 2018-01-29 20:14 | NUR ---
Closing Note Pt AOX4. No signs of distress noted at this time. at bedside. Bed is at lowest position with bed alarm OFF due to pt refuses the bed alarm due to pt ambulatory. Call light within reach. Pt waiting to be seen by Neuro Dr. DESOUZA.
[2018-01-29] MEDS: ATORVASTATIN 20 MG TABLET PO SCH (21:20)
--- NOTE | 2018-01-29 21:20 | NUR ---
Blood Sugar Accucheck 77 and no Insulin coverage needed. Skin remains warm and dry to touch. Pt was given HS snack of 1/2 Dewey sandwich and pt ate 100%. Will continue to monitor pt.
--- NOTE | 2018-01-29 22:30 | NUR ---
Rounds Pt is resting quietly in bed. No c/o pain or discomfort. Call light is with pt.
--- NOTE | 2018-01-30 | NUR ---
Rounds Pt is resting comfortably in bed with BIPAP on. Call light is with pt.
[2018-01-30 00:16] VITALS: BP_SYST 142
--- NOTE | 2018-01-30 02:00 | NUR ---
Rounds Pt is tolerating BIPAP well. No respiratory distress noted. Fall and safety precautions are in place.
[2018-01-30] MEDS: NACL 0.9% 1,000 ML IV SCH ×2 (04:49→15:25)
--- NOTE | 2018-01-30 05:24 | NUR ---
Rounds Pt is resting comfortably in bed. Fall and safety precautions are in place.
--- NOTE | 2018-01-30 06:57 | NUR ---
Closing Note Pt is awake and resting comfortably in bed. All pt's needs were attended to. No fall or injury noted this shift. Accucheck 90 this AM and no Insulin coverage needed. Skin remains warm and dry to touch. Posterior neck dressing is dry and intact. Pt was offered shower this AM, but pt declined. Pt stated he took a shower yesterday. Will endorse to day shift nurse.
[2018-01-30 08:00] VITALS: BP_SYST 129
--- NOTE | 2018-01-30 08:00 | NUR ---
AM Note Pt sitting in chair. A&O x4. Vital signs stable. No complaints of pain. Breath sounds clear throughout. No numbness or tingling in extremities, capillary refill <3 seconds. PERRLA. Bilateral radial and pedal pulses present and equal. Dressing removed from back of neck, incision dry, no redness noted, no drainage, left open to air. PICC line left upper arm, dressing change due today, NS infusing at 90 ml/hr. Pt able to ambulate to bathroom. Safety precautions observed. Call light within reach.
[2018-01-30] MEDS: CYCLOBENZAPRINE HCL 10 MG TABLET (FLEXERIL) PO SCH ×3 (08:39→21:21)
[2018-01-30] MEDS: SERTRALINE HCL 50 MG TABLET PO SCH (08:39)
[2018-01-30] MEDS: DOCUSATE SODIUM 100 MG CAPSULE PO SCH ×3 (08:39→21:00)
[2018-01-30] MEDS: metFORMIN HCL 500 MG TABLET PO SCH ×2 (08:39→18:10)
[2018-01-30] MEDS: GABAPENTIN 300 MG CAPSULE PO SCH ×3 (08:39→21:21)
[2018-01-30] MEDS: amLODIPine BESYLATE 5 MG TABLET PO SCH (08:40)
[2018-01-30] MEDS: FINASTERIDE 5 MG TABLET (PROSCAR) PO SCH (08:40)
[2018-01-30] MEDS: MULTIVITAMINS TAB 1 TABLET PO SCH (08:41)
--- NOTE | 2018-01-30 09:12 | NUR ---
Notes Pt does not have orders for antibiotics in [facility]. Verified with pharmacy. Paged Dr. Oropeza, awaiting call back.
--- NOTE | 2018-01-30 10:00 | NUR ---
Notes Dressing change for PICC line done. Sterile technique used. Site is dry, no drainage, no redness. Pt tolerated dressing change well. Pt up in chair. Call light within reach.
--- NOTE | 2018-01-30 10:09 | NUR ---
DC Planning: dc home with home health: per BYRON Lozano's note on 01/29/18 15:42 DISCHARGE PLANNING - REQUEST FOR SPECIFICS ON WOUND CARE FOR HOME HEALTH CT w/ contrast done and reading is available. Neurosurgery is yet to to order wound care instructions. Informed patient of above. Pt verbalized understanding and stated he will remind rounding neurosurgeon when they will see him today. Pt anticipating d/c in am after IV antibiotics. Addendum: 01/30/18 at 1021 by Zachary Edwards RN >> Addendum: 01/27/18 at 1530 by Marta Brooks RN DISCHARGE PLANNING - DISCHARGE TO HOME WITH WOUND CARE AND IV ATBX Spoke with infiordaliza RN, Annamarie, and she stated that there is no surgical wound dressing change since surgery 01/24 and drainage drain accidentally pulled out 01/26 in the afternoon and this was reported to physician. spoken to patient and he concurs to above events. Attempted to contact neurosurgery Dr. Bruno ph: [phone]. Spoke with the 'office exchange' and will page Dr. Gottlieb as Dr. Bruno is not on today. Addendum: 01/27/18 at 1208 by Marta Brooks RN C/S with Dr. Carissa Lincoln to give update. He said specifics of wound care will need to come from Dr. Bruno / or ignition mechanic for her. Addendum: 01/27/18 at 1232 by Marta Brooks RN Attempted to contact [employer] [facility] ph: [phone], no vm, no booster operator to assist. Their automated answering machine instructs to contact them on regular business hours (Mon-Fri). . Addendum: 01/27/18 at 1530 by Marta Brooks RN Faxed to [facility], d/c order for wound care and IV atbx prescription and order . confirmation Receipt received. C/S with inpt RN Yasmeen and gave her above update. Informed her that pt needs specific out-pt wound care instructions and order from neurosurgery and clearance to discharge pt to home. Home Health will need all of above. Pt will also will need 3 days worth of wound care dressing supplies to go home with. She verbalized understanding. Plan: Inpt RN to follow-up with Neurosurgery specific wound care/dressing instructions for home health. : Inpt RN to follow-up with Neurosurgery for clearance to d/c prior to discharging pt home. : Case Management to fax to [facility] , wound care/dressing instructions for home health and confirm 1st schedule home health visit. Pt prefers late morning schedule. Addendum: 01/30/18 at 1024 by Zachary Edwards RN DISCHARGE PLANNING Date 01/26/13 by Marta Brooks RN DISCHARGE WITH HOME HEALTH FOR IV ANTIBIOTICS C/S with [facility] ph: [phone]. She provided in-network home health provider to do home IV atbx : [facility] ph: [phone]. Address: [address] [place], [place]. They do not have any home health care IV infusion provider located in [place], [place]. She recommended to contact [facility] ([facility]) ph: [phone]. C/S with Cheri @[facility], ph: [phone]. She stated that they do not have any in-network home health providers in [place], [place] and recommended to get approval/authorization from [employer] ph: [phone] [facility] ph: [phone] as they will be paying for the [id number] services. Attempted to contact [facility] ph: [phone]. Left vm regarding need for auth for pt to get home IV atbx in [place], [place] (@his home address the first 14 days then to complete the last 3-5 weeks in [place], [place] (his work location). Message instructed to fax request to : . Request faxed. Pt's [facility]: [facility] [address], [place] [address] Pt's address in [place]: [address] [place] [address] [address] [place], [address] [address] Attempted to contact [facility]-Network located in [facility] - [facility] ph: [phone]. Left vm inquiring if they have a branch or sister [place] [address] area. Left contact phone number. Informed pt about his HMO not having in-network provider in [place] and that he might have to pay higher cost. He agreed to higher cost of out of network provider. Addendum: 01/26/18 at 1456 by Marta Brooks RN ) to Dr. Kim office failed. C/S with booster operator to [facility]. [facility] ph: [phone]. Requested for correct fax#. She gave FAX #: [phone]. Re-faxed request and clinical info. Confirmation receipt received. Addendum: 01/26/18 at 1634 by Marta Brooks RN C/S with NGOC Hand @[facility] ph: [phone]. She stated that Home Infusion is only for homebound pts. Pt need to go to [facility] ph: [phone]. (if calling from [facility] ph: [phone][place] [phone]). Pt agreed to outpt infusion center in [place] after discussing with his . Attempted to contact [facility] ph: [phone] multiple times. No response, no vm -unable to leave vm. Will attempt again in AM as they are open on Saturdays as well. Notified pt. Addendum: 01/27/18 at 1423 by Marta Brooks RN Contact # for [facility]: [phone].
--- NOTE | 2018-01-30 10:30 | NUR ---
DC Planning: [facility] , for IV ABX and wound care. Pt's home address: [address] [place] [address] Pt's address in [place]: [address] [place] [address] [address], [address], [place] [address] Addendum: 01/30/18 at 1057 by Zachary Edwards RN [facility] ph: [phone]. Contact ph # for [facility]: [phone].
--- NOTE | 2018-01-30 10:35 | NUR ---
Notes Spoke to Dr. Oropeza, orders to start Rocephin 2g daily.
[2018-01-30 12:41] VITALS: BP_SYST 137
--- NOTE | 2018-01-30 14:40 | NUR ---
Notes Pt resting in bed. Denies pain at this time. Safety precautions observed.
[2018-01-30 17:18] VITALS: BP_SYST 137
--- NOTE | 2018-01-30 18:52 | NUR ---
Closing Note Pt sitting in chair. at bedside. No complaints of pain. No numbness or tingling in bilateral upper and lower extremities. No respiratory distress noted. Safety precautions observed. Will endorse care to shift mgr RN.
--- NOTE | 2018-01-30 19:12 | NUR ---
RN OPENING NOTE Received report from Annia Palma RN and NGOC Galeas. Patient resting in chair, family at bedside. Patient French-speaking, cooperative, and on RA. Bed locked at lowest position, rails up, call covarrubias within reach. Patient ambulatory w/ minimal assistance. Standard and fall precautions implemented. Plan of care discussed w/ patient. Peripheral IV noted, L upper arm PICC line, patent and benign, infusing NS @ 90 ml/hr. Dressing was changed by Day Shift RNs. Patient has CPAP machine at bedside for use during sleep. Patient has neck brace and incision site left open to air. Neurovascular assessment to be done throughout shift Q 4 hrs.
[2018-01-30 20:25] VITALS: BP_SYST 125
[2018-01-30] MEDS: ATORVASTATIN 20 MG TABLET PO SCH (21:22)
[2018-01-30] MEDS: ZOLPIDEM TARTRATE 5 MG TABLET PO PRN (22:07)
[2018-01-31] VITALS: BP_SYST 141
--- NOTE | 2018-01-31 00:10 | NUR ---
RN ROUNDING Patient sleeping in bed. Patient has CPAP machine on. Patient was able to turn and reposition himself in bed. Neurovascular assessments done Q 4 hours throughout shift. Will continue to monitor.
[2018-01-31] MEDS: NACL 0.9% 1,000 ML IV SCH (03:42)
--- NOTE | 2018-01-31 04:00 | NUR ---
RN ROUNDING Patient sleeping in bed. Patient has CPAP machine on. Neurovascular assessment performed on patient after he was woken. Patient was able to turn and reposition himself in bed. Will continue to monitor.
--- NOTE | 2018-01-31 06:49 | NUR ---
RN CLOSING NOTE Patient resting in bed, Frisian-speaking, cooperative, and on RA. Bed locked at lowest position, rails up, call covarrubias within reach. Patient ambulatory w/ minimal assistance. Standard and fall precautions implemented. Peripheral IV noted, Left upper arm PICC line, patent and benign, infusing NS @ 90 ml/hr. Patient has CPAP machine at bedside for use during sleep. Patient has neck brace and incision site left open to air. Neurovascular assessment done throughout shift Q 4 hrs. Patient able to reposition himself in bed. No C/O pain at this time. No S/S of distress noted. Addendum: 01/31/18 at 0740 by Jones Miles RN Report given to NGOC Cisse.
[2018-01-31 08:02] VITALS: BP_SYST 135
[2018-01-31] MEDS: GABAPENTIN 300 MG CAPSULE PO SCH ×2 (08:47→14:39)
[2018-01-31] MEDS: FINASTERIDE 5 MG TABLET (PROSCAR) PO SCH (08:48)
[2018-01-31] MEDS: amLODIPine BESYLATE 5 MG TABLET PO SCH (08:48)
[2018-01-31] MEDS: MULTIVITAMINS TAB 1 TABLET PO SCH (08:49)
[2018-01-31] MEDS: SERTRALINE HCL 50 MG TABLET PO SCH (08:49)
[2018-01-31] MEDS: metFORMIN HCL 500 MG TABLET PO SCH (08:50)
[2018-01-31] MEDS: CYCLOBENZAPRINE HCL 10 MG TABLET (FLEXERIL) PO SCH ×2 (08:50→14:39)
[2018-01-31] MEDS: DOCUSATE SODIUM 100 MG CAPSULE PO SCH (08:52)
--- NOTE | 2018-01-31 09:53 | NUR ---
Paged Dr. Gottlieb at this time to clarify orders for wound care for D/C for patient
--- NOTE | 2018-01-31 11:22 | NUR ---
Blood Sugar Assessed was 104, no insulin needed per sliding scale protocol, patient denies pain at this time, breathing unlabored on room air,patient sitting on chair at bedside, safety precautions remain in place, bedside table and call light within reach, will continue to monitor
[2018-01-31 12:40] VITALS: BP_SYST 133
[2018-01-31 13:29] VITALS: BP_SYST 135
--- NOTE | 2018-01-31 14:40 | NUR ---
Medication administration educated patient regarding medications, verbalized understanding, patient stated he has been making phone calls to infusion center to contribute to discharge needs, stated will update patient with any progress notes from case management, no complaints of pain at this time, safety precautions remain in place, bedside table and call light within reach, will continue to monitor
--- NOTE | 2018-01-31 14:52 | NUR ---
DC Planning: Per Malick at [facility] at [employer] # [phone] stated " no proauthorization required for home health and infusion ctr set up." >> Confirmed acceptance for IV ABX delivery to pt's home tomorrow by 9 am. Vandana at [facility] will contact the patient in am. Vandana's contact # [phone]. Levon Ross will obtain auth from [employer]. >> [facility] [place] # [phone] to follow up for wound care and IV abx infusion-- pending auth verification. Addendum: 01/31/18 at 1758 by Zachary Edwards RN >> Per Sudarshan at [facility] accepted the pt. and will sent RN to visit with the pt. tomorrow. >>[facility],Vandana's contact # [phone]. Please note the correct phone number. Per pt. as his spouse, Vandana already contacted the pt. for the delivery of the IV medicine.
--- NOTE | 2018-01-31 16:17 | NUR ---
Patient sitting on chair at bedside no complaints of pain, breathing unlabored on room air, at bedside, patient stated he is keeping in contact with [facility], will continue to follow up, no other needs at this time, safety precautions remain in place, bedside table and call light within reach, will continue to monitor
--- NOTE | 2018-01-31 17:26 | NUR ---
D/C Patient Patient given medication reconciliation form and D/C instructions. Exit Care provided. Patient verbalized understanding. MD discussed with patient the results and treatment provided. Ambulatory with steady gait for discharge to home. Patient in stable condition, MD order for DC with PICC line. Rx of Yaphank given. Patient and educated on pain management. All belongings sent with patient.
[2018-01-31 17:59] VITALS: BP_SYST 129
== END 2018-01-31 17:25 | disposition home health service (06) | DRG 856 ==
LOC: SED 21:54 → SMU 01-20 00:31
PROVIDERS: ADMIT Family Medicine; ATTEND Family Medicine
PROC: 02HV33Z Insertion of Infusion Device into Superior Vena Cava, Percutaneous Approach (ICD-10-PCS; 2018-01-20)
PROC: B548ZZA Ultrasonography of Superior Vena Cava, Guidance (ICD-10-PCS; 2018-01-20)
PROC: 0JD70ZZ Extraction of Back Subcutaneous Tissue and Fascia, Open Approach (ICD-10-PCS; principal; 2018-01-24 14:00)
DX: T81.4XXA Infection following a procedure, initial encounter (principal); A41.9 Sepsis, unspecified organism; N17.0 Acute kidney failure with tubular necrosis; L03.221 Cellulitis of neck; E11.9 Type 2 diabetes mellitus without complications; B95.61 Methicillin susceptible Staphylococcus aureus infection as the cause of diseases classified elsewhere; E66.9 Obesity, unspecified; E78.5 Hyperlipidemia, unspecified; F32.9 Major depressive disorder, single episode, unspecified; G47.00 Insomnia, unspecified; G47.33 Obstructive sleep apnea (adult) (pediatric); I10 Essential (primary) hypertension; M47.9 Spondylosis, unspecified; M54.12 Radiculopathy, cervical region; N40.0 Benign prostatic hyperplasia without lower urinary tract symptoms; Y83.8 Other surgical procedures as the cause of abnormal reaction of the patient, or of later complication, without mention of misadventure at the time of the procedure; Z98.1 Arthrodesis status; Z68.36 Body mass index [BMI] 36.0-36.9, adult; Z88.8 Allergy status to other drugs, medicaments and biological substances; Z79.899 Other long term (current) drug therapy; Z79.84 Long term (current) use of oral hypoglycemic drugs; Y92.89 Other specified places as the place of occurrence of the external cause
CPT/HCPCS: 36415; 70491-TC; 71045; 72125-TC; 80048; 80053; 80061; 80202-TC; 81003; 82150-TC; 82962; 83036; 83605; 83690-TC; 83735-TC; 83880; 84100-TC; 84436; 84439; 84443-TC; 84479; 85025; 85610-TC; 85730-TC; 87040-TC; 87070; 87070-TC; 87081; 87086; 87101; 87186-TC; 93005; 93970; 94660; 94760; 96361; 96374; 96375; 99285; C1751; C1769; J0690; J0696; J1200; J1815; J2250; J2270; J2405; J2704; J3010; J3370; J7030; J7050; J7060; Q9967

== ENCOUNTER 2019-01-23 09:29 | Emergency (ER) | payer BC ==
[~2019-01-23] VITALS: Ht 172.7 cm; Wt 99.8 kg
[2019-01-23 09:29] VITALS: BP_SYST 162
[~2019-01-23 09:29] MED LIST: AMLO5TAB4 PO; CYCL-10 PO; FINA5TAB3 PO; GABA-531 PO; GLU500 PO; HYDR-4100 PO; LIP80 PO; MULT PO; ONDA4TAB5 PO; SERT50TA PO; TRAM50TA92 PO; ZOLP10TA2 PO
--- NOTE | 2019-01-23 09:29 | NUR ---
BROUGHT BACK TO BED #4 AND TRIAGED. REPORT GIVEN TO SOBEIDA
--- NOTE | 2019-01-23 09:40 | NUR ---
ER Dr. MALLORY at bedside examining patient.
--- NOTE | 2019-01-23 09:45 | NUR ---
PATIENT SITTING UP ON BED. AAOx4. RESPIRATIONS EVEN AND UNLABORED. NO SOB. DENIES OF ANY CHEST PAIN. NO NUMBNESS, TINGLING, HEADACHE, OR DIZZINESS. PATIENT WITH C/O RIGHT HAND AND RIGHT CALF PAIN. PAIN = 5/10; TOLERABLE VERBALIZED. NO OBJECTIVE S/SX OF PAIN OBSERVED. PT CONCERNED ABOUT HAVING A POSSIBLE DVT DUE TO RECENT SURGERIES ON DECEMBER 24 AND JANUARY 042018. RIGHT FOREARM AND RIGHT LOWER EXTREMITY NOTED WITH SOME SWELLING. PATIENT IN NO ACUTE DISTRESS. MD ORDERS NOTED AND TO BE CARRIED OUT.
[2019-01-23 09:58] LABS: BASOPHILS % (AUTO) 0.6 % (0.0-2.0); EOSINOPHILS # (AUTO) 0.2 K/uL (0.0-0.4); EOSINOPHILS % (AUTO) 3.2 % (0.0-4.0); HEMATOCRIT 43.8 % (36-54); HEMOGLOBIN 14.5 g/dL (14.0-18.0); LYMPHOCYTES # (AUTO) 1.7 K/uL (1.0-5.5); LYMPHOCYTES % (AUTO) 26.7 % (20.5-51.5); MEAN CORPUSCULAR HEMOGLOBIN 30 pg (27-31); MEAN CORPUSCULAR HGB CONC 33 % (32-36); MEAN CORPUSCULAR VOLUME 92 fL (79.0-98.0); MONOCYTES # (AUTO) 0.4 K/uL (0.0-1.0); MONOCYTES % (AUTO) 6.1 % (1.7-9.3); NEUTROPHILS # (AUTO) 4.1 K/uL (1.8-7.7); NEUTROPHILS % (AUTO) 63.4 % (40.0-70.0); PLATELET COUNT (AUTO) 224 K/uL (130-430); RED BLOOD CELL COUNT(AUTO) 4.79 MIL/uL (4.2-6.2); RED CELL DISTRIBUTION WIDTH 15.1 % (9.0-15.0); WHITE BLOOD COUNT (AUTO) 6.4 K/uL (4.8-10.8)
[2019-01-23 10:14] LABS: CALCIUM 9.1 mg/dL (8.4-11.0); CREATININE 1.01 mg/dL (0.55-1.30); POTASSIUM 3.9 mmol/L (3.5-5.1)
[2019-01-23 10:16] LABS: PROTHROMBIN TIME 9.9 SECS (9.5-12.5)
[2019-01-23 10:26] LABS: TOTAL BILIRUBIN 0.8 mg/dL (0.0-1.0)
[2019-01-23 10:27] LABS: ALBUMIN 3.7 g/dL (3.4-4.8)
--- NOTE | 2019-01-23 10:35 | NUR ---
Patient resting quietly. No acute distress noted.
--- NOTE | 2019-01-23 10:39 | NUR ---
Patient taken for ultrasound.
--- NOTE | 2019-01-23 10:45 | NUR ---
Carlo dasilva in [facility] - 01/23/19 at 1133 by SDEDOJ Patient resting quietly. No acute distress noted.
--- NOTE | 2019-01-23 11:00 | NUR ---
Returned from ULTRASOUND. PATIENT IN NO ACUTE DISTRESS.
--- NOTE | 2019-01-23 11:45 | NUR ---
Patient resting quietly. No acute distress noted. Vital signs within normal range. PATIENT STILL WITH C/O RIGHT HAND AND RIGHT LOWER LEG PAIN = 5/10; TOLERABLE VERBALIZED. NO OBJECTIVE S/SX OF PAIN OBSERVED. REST AND RELAXATION ENCOURAGED. WILL CONTINUE TO MONITOR.
[2019-01-23 12:00] VITALS: BP_SYST 152
--- NOTE | 2019-01-23 12:00 | NUR ---
Patient given written and verbal discharge instructions and verbalizes understanding. ER MD discussed with patient the results and treatment provided. Patient in stable condition. ID arm band removed. No Rx given. Patient educated on pain management and to follow up with PMD. Pain Scale 5/10; TOLERABLE VERBALIZED. NO OBJECTIVE S/SX OF PAIN OBSERVED. Opportunity for questions provided and answered. Medication side effect fact sheet provided. PATIENT IN GOOD CONDITION AND IN NO ACUTE DISTRESS. PATIENT NOTED WITH A STABLE GAIT.
== END 2019-01-23 12:00 | disposition home or self-care (01) ==
LOC: SED 09:29
DX: S86.911A Strain of unspecified muscle(s) and tendon(s) at lower leg level, right leg, initial encounter (principal); E11.9 Type 2 diabetes mellitus without complications; I10 Essential (primary) hypertension; E78.5 Hyperlipidemia, unspecified; Z88.5 Allergy status to narcotic agent; Z91.048 Other nonmedicinal substance allergy status; Z79.899 Other long term (current) drug therapy; X58.XXXA Exposure to other specified factors, initial encounter; Y93.89 Activity, other specified; Y92.89 Other specified places as the place of occurrence of the external cause; Y99.8 Other external cause status
CPT/HCPCS: 36415; 80053; 85025; 85610-TC; 85730-TC; 93971; 99284